=== PATIENT | male | born 1950 | race Caucasian/White ===

== ENCOUNTER 2019-12-30 10:07 | Emergency (ER) | payer OTHER ==
[2019-12-30 10:30] VITALS: TEMP 98.3; BMI 21.2
--- NOTE | 2019-12-30 10:50 | PDOC ---
History of Present Illness - General Chief Complaint: Cold Symptoms Stated Complaint: FEVER/COUGH Time Seen by Provider: 12/30/19 10:48 History Source: Patient, Old Records Exam Limitations: No Limitations - History of Present Illness Initial Comments: 12/30/19 10:49 CHIEF COMPLAINT: HISTORY OF PRESENT ILLNESS: This is a 69-year-old male with a history of hypertension, ESRD on HD /Juani/Thu, IDDM, gallstones s/p cholecystectomy feeling ill since yesterday with subj fever, vomiting x 3, and dry cough. Patient denies chest pain, shortness of breath, chills/rigors, abdominal pain, or any other symptoms. He denies recent travel or known sick contacts. Vital signs on arrival are notable for HTN 205/75. Patient did not take home meds this morning. PCP: Dr. Oj Julien REVIEW OF SYSTEMS: GENERAL/CONSTITUTIONAL:Subjective fever, no or chills. No weakness. No weight change. HEAD, EYES, EARS, NOSE AND THROAT: No change in vision. No ear pain or discharge. No sore throat. CARDIOVASCULAR: No chest pain or palpitations. RESPIRATORY: No cough, wheezing, or shortness of breath. GASTROINTESTINAL: No nausea, vomiting, diarrhea or constipation. GENITOURINARY: No dysuria, frequency, or change in urination. MUSCULOSKELETAL: No joint or muscle swelling or pain. No neck or back pain. SKIN: No rash or easy bruising. NEUROLOGIC: No headache, vertigo, loss of consciousness, or loss of sensation. PSYCHIATRIC: No depression or anxiety. ENDOCRINE: No increased thirst. No abnormal weight change. HEMATOLOGIC/LYMPHATIC: No anemia, easy bleeding, or history of blood clots. ALLERGIC/IMMUNOLOGIC: No hives or skin allergy. No latex allergy. PHYSICAL EXAM: GENERAL: The patient is awake, alert, and fully oriented, in no acute distress. HEAD: Normal with no signs of trauma. ENT: Pupils equal, round and reactive to light, extraocular movements intact, sclera anicteric, conjunctiva clear. Neck supple. LUNGS: Clear to auscultation bilaterally. Normal excursion. No respiratory distress or use of accessory muscles. CV: RRR, S1/S2, no MRG. Cap refill < 2 sec. ABDOMEN: Soft, non-distended, non-tender. EXTREMITIES: Normal range of motion, no edema. NEUROLOGICAL: Normal speech, normal gait. CN II-XII grossly intact. PSYCH: Normal mood, normal affect. SKIN: Warm, dry, normal turgor, no rashes or lesions noted. Past History - Past Medical History Allergies/Adverse Reactions: Allergies Allergy/AdvReac Type Severity Reaction Status Date / Time No Known Allergies Allergy Verified 12/30/19 10:25 Home Medications: Ambulatory Orders Atorvastatin Ca [Lipitor] 20 mg PO HS #30 tablet 02/15/16 Carvedilol [Coreg -] 25 mg PO BID tablet 02/15/16 Nifedipine ER [Procardia XL -] 60 mg PO DAILY tab.er.24 02/15/16 Sevelamer Carbonate [Renvela -] 1,600 mg PO TIDCM tab 02/15/16 Vit B Comp No.3/Folic/C/Biotin [Nephro-Hannah Rx Tablet] 1 each PO DAILY 11/09/16 Oxycodone HCl/Acetaminophen [Percocet 5-325 mg Tablet] 1 - 2 tab PO Q6H #28 tab MDD 4 11/10/16 Docusate Sodium [Colace -] 100 mg PO Q12H PRN #60 capsule 11/12/16 Insulin Sliding Scale [Novolog Vial Sliding Scale -] 1 vial SQ ACHS units 11/12 Ondansetron [Zofran *Odt*] 4 mg SL TID PRN #21 od.tablet 12/30/19 Oseltamivir Phosphate [Tamiflu] 30 mg PO ASDIR #5 capsule 12/30/19 Anemia: No CVA: Yes (in 2005) COPD: No Diabetes: Yes Dialysis: Yes (,,) GI Disorders: Yes (GALLSTONES) HTN: Yes Hypercholesterolemia: Yes - Immunization History Immunization Up to Date: Yes - Psycho Social/Smoking Cessation Hx Smoking History: Never smoked Have you smoked in the past 12 months: No Information on smoking cessation initiated: No Hx Alcohol Use: No Drug/Substance Use Hx: No Substance Use Type: None Hx Substance Use Treatment: No *Physical Exam - Vital Signs Last Vital Signs Temp Pulse Resp BP Pulse Ox 98.3 F 94 H 16 205/75 H 98 12/30/19 10:21 12/30/19 10:21 12/30/19 10:21 12/30/19 10:21 01/31/20 10:21 ED Treatment Course - LABORATORY CBC & Chemistry Diagram: 12/30/19 11:20 12/30/19 11:20 Medical Decision Making - Medical Decision Making 12/30/19 12:32 A/P: 69-year-old male with flulike symptoms, also with severe range HTN after not taking blood pressure medication today. 1. Labs including CBC, CMP, flu a swab 2. CXR rule out pneumonia 3. Reevaluate Flu a is positive. X-ray is negative for infiltrate. Patient is well- appearing. Will treat with Tamiflu according to HD dosing. Follow-up instructions and return precautions reviewed. Discharge - Discharge Information Problems reviewed: Yes Clinical Impression/Diagnosis: Influenza A Condition: Stable Disposition: HOME - Admission No - Additional Discharge Information Prescriptions: Ondansetron [Zofran *Odt*] 4 mg SL TID PRN #21 od.tablet PRN Reason: Nausea Oseltamivir Phosphate [Tamiflu] 30 mg PO ASDIR #5 capsule - Follow up/Referral Referrals: Oj Julien [Primary Care Provider] - 3 days - Patient Discharge Instructions Patient Printed Discharge Instructions: DI for Influenza -- Adult Additional Instructions: -Take Tamiflu as prescribed for influenza -Take Zofran if needed for nausea/vomiting -Stay home! Notify your dialysis center that you have flu. -Return here for difficulty breathing or any other concerning symptoms Print Language: ARMENIAN - Post Discharge Activity
[2019-12-30] MEDS ORDERED: amLODIPine BESYLATE 10 MG TABLET (FP) PO ONE (10:54)
[2019-12-30] MEDS ORDERED: amLODIPine BESYLATE 5 MG TABLET (FP) ONE (11:01)
[2019-12-30 11:40] LABS: BASO % 0.7 % (0-2.0); EOS % 0.1 % (0-4.5); HEMATOCRIT 39.5 % (35.4-49); HEMOGLOBIN 13.4 GM/dL (11.7-16.9); LYMPH % 13.4 % (8-40); MCH 34.1 pg (25.7-33.7); MEAN CELL VOLUME 100.4 fl (80-96); MEAN PLT VOLUME 7.4 fl (7.5-11.1); MONO % 12.1 % (3.8-10.2); NEUT % 73.7 % (42.8-82.8); PLATELET COUNT 252 K/MM3 (134-434); RBC 3.94 M/mm3 (4.00-5.60); RDW 14.2 % (11.9-15.9); WHITE BLOOD COUNT 4.3 K/mm3 (4.0-10.0)
[2019-12-30 12:22] LABS: ALBUMIN 3.7 g/dl (3.4-5.0); BILIRUBIN,TOTAL 0.6 mg/dL (0.2-1); BLOOD UREA NITROGEN 17.7 mg/dL (7-18); CALCIUM 9.7 mg/dL (8.5-10.1); CREATININE 5.9 mg/dL (0.55-1.3); POTASSIUM 5.5 mmol/L (3.5-5.1); TOT PROT 7.9 g/dl (6.4-8.2)
[2019-12-30 12:58] VITALS: BP 175/71; PULSE 83
== END 2019-12-30 12:59 | disposition home or self-care (01) ==
LOC: JER 10:07
DX: J09.X2 Influenza due to identified novel influenza A virus with other respiratory manifestations (principal); I10 Essential (primary) hypertension; E78.00 Pure hypercholesterolemia, unspecified; E11.9 Type 2 diabetes mellitus without complications; Z99.2 Dependence on renal dialysis
CPT/HCPCS: 36415; 71046-TC-FY; 80053; 85025; 87804; 99283-25

== ENCOUNTER 2020-12-19 13:50 | Inpatient (IN) | payer OTHER ==
[2020-12-19 14:06] VITALS: BMI 17.6
[2020-12-19] MEDS ORDERED: ACETAMINOPHEN 325 MG TABLET (FP) PO ONE (15:18)
[2020-12-19] MEDS ORDERED: ACETAMINOPHEN 325 MG TABLET (FP) ONE (15:23)
[2020-12-19 16:12] LABS: EOS % 2.7 % (0-4.5); HEMATOCRIT 35.6 % (35.4-49); LYMPH % 16.4 % (8-40); MCH 34.5 pg (25.7-33.7); MCHC 33.8 g/dl (32.0-35.9); MEAN PLT VOLUME 7.2 fl (7.5-11.1); MONO % 9.3 % (3.8-10.2); NEUT % 70.6 % (42.8-82.8); PLATELET COUNT 383 K/MM3 (134-434); RBC 3.49 M/mm3 (4.00-5.60); RDW 13.9 % (11.9-15.9); WHITE BLOOD COUNT 7.8 K/mm3 (4.0-10.0)
[2020-12-19 16:26] LABS: POTASSIUM 5.4 mmol/L (3.5-5.1)
[2020-12-19 16:30] LABS: ALBUMIN 3.1 g/dl (3.4-5.0); CALCIUM 9.7 mg/dL (8.5-10.1)
[2020-12-19 16:33] LABS: CREATININE 5.6 mg/dL (0.55-1.3)
[2020-12-19] MEDS ORDERED: morphine CARPU-JECT 2 MG/1 ML DISP.SYRIN IVPUSH ONE (16:34)
[2020-12-19 16:35] LABS: BILIRUBIN,TOTAL 0.4 mg/dL (0.2-1); TOT PROT 7.6 g/dl (6.4-8.2)
[2020-12-19] MEDS ORDERED: CALCIUM GLUCONATE 10% - 1,000 MG/10 ML VIAL IVPB ONE (17:06)
[2020-12-19] MEDS ORDERED: DEXTROSE 50%-WATER - 25 GM/50 ML VIAL IVPUSH ONE (17:08)
[2020-12-19] MEDS ORDERED: INSULIN REGULAR HUMAN 100 UNITS/ML *VIAL IVPUSH ONE (17:08)
[2020-12-19] MEDS ORDERED: SODIUM ZIRCONIUM CYCLOSILICATE (LOKELMA) 5 GM PACKET PO ONE (17:15)
[2020-12-19] MEDS ORDERED: DEXTROSE 50%-WATER 25 GM/50 ML DISP.SYRIN ONE (17:20)
[2020-12-19] MEDS ORDERED: CALCIUM GLUCONATE 10% - 1,000 MG/10 ML VIAL ONE (17:20)
[2020-12-19] MEDS ORDERED: MORPHINE SULFATE 2 MG/ML VIAL ONE (17:37)
[2020-12-19] MEDS ORDERED: SODIUM ZIRCONIUM CYCLOSILICATE (LOKELMA) 5 GM PACKET ONE (18:19)
[2020-12-19] MEDS ORDERED: BISACODYL 10 MG SUPP.RECT PR ONE (20:45)
[2020-12-19] MEDS ORDERED: POLYETHYLENE GLYCOL 3350 119 GM BTL PO ONE (20:48)
[2020-12-19] MEDS ORDERED: BISACODYL 10 MG SUPP.RECT ONE (21:48)
[2020-12-19 22:45] LABS: POTASSIUM 4.8 mmol/L (3.5-5.1)
[2020-12-19 22:47] LABS: BLOOD UREA NITROGEN 37.4 mg/dL (7-18); CALCIUM 9.7 mg/dL (8.5-10.1)
[2020-12-19 22:51] LABS: CREATININE 5.8 mg/dL (0.55-1.3)
[2020-12-19 22:58] LABS: URINE APPEARANCE TURBID; URINE BILIRUBIN NEGATIVE (NEGATIVE); URINE COLOR RED; URINE GLUCOSE (UA) NEGATIVE (NEGATIVE); URINE KETONE NEGATIVE (NEGATIVE); URINE LEUK ESTERASE 3+ (NEGATIVE); URINE NITRITE NEGATIVE (NEGATIVE); URINE PROTEIN 4+ (NEGATIVE); URINE UROBILINOGEN 0.2 mg/dL (0.2-1.0)
[2020-12-19] MEDS ORDERED: CEFTRIAXONE 1 GM in DEXTROSE 5%-WATER - 100 ML IVPB ONE (23:11)
[2020-12-19] MEDS ORDERED: CEFTRIAXONE 1 GM/50 ML BAG ONE (23:16)
[2020-12-20] MEDS ORDERED: ACETAMINOPHEN 325 MG TABLET (FP) PO ONE (06:30)
[2020-12-20] MEDS: INSULIN SLIDING SCALE (NOVOLOG) 1 VIAL SQ SCH ×4 (06:32→23:24)
[2020-12-20 07:50] LABS: BASO % 0.8 % (0-2.0); EOS % 2.1 % (0-4.5); HEMOGLOBIN 10.7 GM/dL (11.7-16.9); LYMPH % 12.7 % (8-40); MCH 34.4 pg (25.7-33.7); MCHC 34.6 g/dl (32.0-35.9); MEAN CELL VOLUME 99.4 fl (80-96); MEAN PLT VOLUME 6.8 fl (7.5-11.1); MONO % 8.6 % (3.8-10.2); NEUT % 75.8 % (42.8-82.8); PLATELET COUNT 366 K/MM3 (134-434); RBC 3.12 M/mm3 (4.00-5.60); RDW 13.5 % (11.9-15.9); WHITE BLOOD COUNT 8.1 K/mm3 (4.0-10.0)
[2020-12-20 07:54] LABS: BLOOD UREA NITROGEN 42.6 mg/dL (7-18); CALCIUM 9.2 mg/dL (8.5-10.1); MAGNESIUM 2.4 mg/dL (1.8-2.4)
[2020-12-20 07:55] LABS: ALBUMIN 2.7 g/dl (3.4-5.0)
[2020-12-20 07:58] LABS: CREATININE 6.2 mg/dL (0.55-1.3)
[2020-12-20 07:59] LABS: BILIRUBIN,TOTAL 0.5 mg/dL (0.2-1); TOT PROT 6.2 g/dl (6.4-8.2)
[2020-12-20] MEDS ORDERED: DOCUSATE SODIUM 100 MG CAPSULE (FP) PO PRN (08:51)
[2020-12-20] MEDS ORDERED: traMADol HCL 50 MG TABLET PO PRN (08:51)
[2020-12-20] MEDS ORDERED: ONDANSETRON *ODT* 4 MG TABLET SL PRN (08:51)
[2020-12-20] MEDS ORDERED: ACETAMINOPHEN 325 MG TABLET (FP) ONE (11:10)
[2020-12-20] MEDS: HEPARIN NA (PORCINE) 5,000 UNITS/ML 1ML VIAL SQ SCH ×2 (11:12→21:50)
[2020-12-20] MEDS ORDERED: ACETAMINOPHEN 325 MG TABLET (FP) PO PRN (11:34)
[2020-12-20] MEDS ORDERED: PHENAZOPYRIDINE HCL 100 MG TABLET (FP) PO PRN (11:34)
[2020-12-20] MEDS: SEVELAMER CARBONATE 800 MG TAB (FP) PO SCH ×2 (12:36→17:19)
[2020-12-20] MEDS ORDERED: EPOETIN ALFA-EPBX 3,000 UNIT/ML VIAL IVPUSH ONE (15:00)
[2020-12-20] MEDS ORDERED: DEXTROSE 5%-WATER - 50 ML IVPB ONE (16:01)
[2020-12-20] MEDS ORDERED: cefTRIAXone SODIUM 1 GM VIAL ONE (16:01)
[2020-12-20] MEDS: POLYETHYLENE GLYCOL 3350 119 GM BTL PO SCH ×2 (18:16→23:15)
[2020-12-20] MEDS: CARVEDILOL 25 MG TABLET (FP) PO SCH ×2 (18:16→21:52)
[2020-12-20] MEDS: LISINOPRIL 10 MG TABLET PO SCH (18:17)
[2020-12-20] MEDS: NIFEdipine E.R. 90 MG TABLET PO SCH (18:17)
[2020-12-20] MEDS: VITAMIN B COMP W-C 1 EA TABLET (NEPHRO-VITE) PO SCH (18:17)
[2020-12-20] MEDS: CEFTRIAXONE 1 GM in DEXTROSE 5%-WATER - 50 ML IVPB SCH (18:19)
[2020-12-20] MEDS ORDERED: MIRTAZAPINE 15 MG TABLET (FP) PO SCH (22:00)
[2020-12-20] MEDS ORDERED: ATORVASTATIN CA 20 MG TABLET (FP) PO SCH (22:00)
[2020-12-21] MEDS: INSULIN SLIDING SCALE (NOVOLOG) 1 VIAL SQ SCH (06:47)
[2020-12-21 07:23] LABS: BASO % 1.2 % (0-2.0); EOS % 2.8 % (0-4.5); HEMATOCRIT 28.9 % (35.4-49); HEMOGLOBIN 10.2 GM/dL (11.7-16.9); LYMPH % 21.8 % (8-40); MCH 35.1 pg (25.7-33.7); MCHC 35.1 g/dl (32.0-35.9); MEAN CELL VOLUME 99.9 fl (80-96); MEAN PLT VOLUME 6.7 fl (7.5-11.1); NEUT % 62.2 % (42.8-82.8); PLATELET COUNT 319 K/MM3 (134-434); RBC 2.89 M/mm3 (4.00-5.60); RDW 14.1 % (11.9-15.9); WHITE BLOOD COUNT 5.3 K/mm3 (4.0-10.0)
[2020-12-21 07:44] LABS: CALCIUM 8.9 mg/dL (8.5-10.1); POTASSIUM 4.4 mmol/L (3.5-5.1)
[2020-12-21 07:45] LABS: ALBUMIN 2.5 g/dl (3.4-5.0); BLOOD UREA NITROGEN 22.6 mg/dL (7-18)
[2020-12-21 07:48] LABS: CREATININE 4.2 mg/dL (0.55-1.3)
[2020-12-21 07:49] LABS: BILIRUBIN,TOTAL 0.4 mg/dL (0.2-1); TOT PROT 6.1 g/dl (6.4-8.2)
[2020-12-21] MEDS ORDERED: DEXTROSE 5%-WATER - 50 ML IVPB ONE (08:45)
[2020-12-21] MEDS ORDERED: cefTRIAXone SODIUM 1 GM VIAL ONE (08:45)
[2020-12-21] MEDS: NIFEdipine E.R. 90 MG TABLET PO SCH (09:02)
[2020-12-21] MEDS: SEVELAMER CARBONATE 800 MG TAB (FP) PO SCH ×2 (09:02→11:26)
[2020-12-21] MEDS: HEPARIN NA (PORCINE) 5,000 UNITS/ML 1ML VIAL SQ SCH (09:02)
[2020-12-21] MEDS: CEFTRIAXONE 1 GM in DEXTROSE 5%-WATER - 50 ML IVPB SCH (09:02)
[2020-12-21] MEDS: POLYETHYLENE GLYCOL 3350 119 GM BTL PO SCH (09:03)
[2020-12-21] MEDS: CARVEDILOL 25 MG TABLET (FP) PO SCH (09:03)
[2020-12-21] MEDS: LISINOPRIL 10 MG TABLET PO SCH (09:03)
[2020-12-21] MEDS: VITAMIN B COMP W-C 1 EA TABLET (NEPHRO-VITE) PO SCH (09:03)
[2020-12-21 10:40] VITALS: BP 128/52; PULSE 66; TEMP 99.4
== END 2020-12-21 14:12 | disposition home or self-care (01) | DRG 391 ==
LOC: JER 13:50 → JERBED 20:54 → J4W 12-20 05:14
PROVIDERS: ADMIT Family Medicine; ATTEND Family Medicine
PROC: 5A1D70Z Performance of Urinary Filtration, Intermittent, Less than 6 Hours Per Day (ICD-10-PCS; principal; 2020-12-20)
DX: K59.00 Constipation, unspecified (principal); N18.6 End stage renal disease; R64 Cachexia; N39.0 Urinary tract infection, site not specified; Z68.1 Body mass index [BMI] 19.9 or less, adult; I12.0 Hypertensive chronic kidney disease with stage 5 chronic kidney disease or end stage renal disease; E10.9 Type 1 diabetes mellitus without complications; E87.5 Hyperkalemia; N40.0 Benign prostatic hyperplasia without lower urinary tract symptoms; Z99.2 Dependence on renal dialysis
CPT/HCPCS: 36415; 74176-TC; 80048; 80053; 81003; 82962; 83735; 85025; 86704; 86706; 86707; 86708; 86709; 86803; 87086; 87340; 93005; 93010; 99285-25; C9803; J1644; Q5106; U0003

== ENCOUNTER 2021-04-30 07:00 | Inpatient (IN) | payer OTHER ==
[2021-04-30] MEDS ORDERED: CALCIUM GLUCONATE 10% - 1,000 MG/10 ML VIAL IVPUSH ONE (07:16)
[2021-04-30] MEDS ORDERED: ONDANSETRON 4 MG/2 ML VIAL IVPUSH ONE (07:45)
[2021-04-30 08:04] LABS: INR 0.91 (0.83-1.09); PROTHROMBIN TIME (PATIENT) 11.1 SEC (9.7-13.0)
[2021-04-30 08:06] LABS: ACTIVATED PTT 29.5 SECONDS (25.2-36.5)
[2021-04-30 08:11] LABS: CHLORIDE 91 mmol/L (98-107); SODIUM 129 mmol/L (136-145)
[2021-04-30 08:13] LABS: CALCIUM 10.1 mg/dL (8.5-10.1)
[2021-04-30 08:14] LABS: BLOOD UREA NITROGEN 53.9 mg/dL (7-18); CO2 23 mmol/L (21-32); GLUCOSE,RANDOM 110 mg/dL (74-106)
[2021-04-30 08:16] LABS: CHOLESTEROL 187 mg/dL (50-200)
[2021-04-30 08:17] LABS: SGOT/AST 47 U/L (15-37); SGPT/ALT 7 U/L (13-61); TRIGLYCERIDES 138 mg/dL (0-150)
[2021-04-30 08:18] LABS: BILIRUBIN,TOTAL 0.6 mg/dL (0.2-1); LDL CHOLESTEROL (ONLY SJRH) 100 mg/dL (5-100)
[2021-04-30 08:19] LABS: HDL CHOLESTEROL 60 mg/dL (40-60); TOT PROT 9.3 g/dl (6.4-8.2)
[2021-04-30 08:20] LABS: ALK PHOS 94 U/L (45-117)
[2021-04-30] MEDS ORDERED: ONDANSETRON 4 MG/2 ML VIAL ONE (08:35)
[2021-04-30 08:36] LABS: BASO % 0.6 % (0-2.0); EOS % 1.4 % (0-4.5); HEMATOCRIT 41.5 % (35.4-49); HEMOGLOBIN 14.1 GM/dL (11.7-16.9); LYMPH % 20.1 % (8-40); MCH 32.7 pg (25.7-33.7); MCHC 33.9 g/dl (32.0-35.9); MEAN CELL VOLUME 96.5 fl (80-96); MEAN PLT VOLUME 7.9 fl (7.5-11.1); MONO % 5.7 % (3.8-10.2); NEUT % 72.2 % (42.8-82.8); PLATELET COUNT 495 K/MM3 (134-434); RDW 16.2 % (11.9-15.9); WHITE BLOOD COUNT 6.7 K/mm3 (4.0-10.0)
[2021-04-30] MEDS ORDERED: CALCIUM GLUCONATE 10% - 1,000 MG/10 ML VIAL ONE ×2 (08:36→09:31)
[2021-04-30 08:41] LABS: ANION GAP 15 MMOL/L (8-16); CREATININE 8.7 mg/dL (0.55-1.3)
[2021-04-30] MEDS ORDERED: LABETALOL HCL 5 MG/1 ML (100MG/20 ML VIAL) IVPUSH ONE (09:50)
[2021-04-30] MEDS ORDERED: LABETALOL HCL 5 MG/1 ML (100MG/20 ML VIAL) ONE (09:55)
[2021-04-30] MEDS ORDERED: HEPARIN NA (PORCINE) 5,000 UNITS/ML 1ML VIAL ONE (09:57)
[2021-04-30] MEDS ORDERED: LIDOCAINE HCL 1%, 10 MG/ML (20ML VIAL) ONE (09:57)
[2021-04-30 10:11] LABS: ANISOCYTOSIS 0; MACROCYTOSIS 0; PLATELET ESTIMATE INCREASED
[2021-04-30] MEDS ORDERED: MIDAZOLAM HCL 2 MG/2 ML SINGLE DOSE VIAL ONE (10:14)
[2021-04-30] MEDS ORDERED: ROCURONIUM BROMIDE 50 MG/5 ML SYRINGE ONE (10:19)
[2021-04-30] MEDS ORDERED: ceFAZolin SODIUM 1 GM VIAL ONE (10:37)
[2021-04-30] MEDS ORDERED: SODIUM CHLORIDE 0.9% P/F 10 ML VIAL IJ ONE (10:37)
[2021-04-30] MEDS ORDERED: ceFAZolin SODIUM 1 GM VIAL IVPB ONE (10:41)
[2021-04-30] MEDS ORDERED: METOPROLOL TARTRATE 5 MG/5 ML VIAL ONE ×2 (10:47→11:50)
[2021-04-30] MEDS ORDERED: LIDOCAINE HCL 1%, 10 MG/ML (20ML VIAL) NR ONE (10:58)
[2021-04-30] MEDS ORDERED: hydrALAZINE HCL 20 MG/ML VIAL ONE ×2 (11:03→11:37)
[2021-04-30] MEDS ORDERED: NEOSTIGMINE METHYLSULFATE 0.5 MG/ML - 10 ML MDV ONE (11:27)
[2021-04-30] MEDS ORDERED: GLYCOPYRROLATE 0.2 MG/1 ML VIAL ONE (11:27)
[2021-04-30] MEDS ORDERED: POVIDONE-IODINE OINTMENT 10% - 28.4 GM TUBE ONE (11:27)
[2021-04-30] MEDS ORDERED: ONDANSETRON 4 MG/2 ML VIAL IVPUSH PRN (12:08)
[2021-04-30] MEDS ORDERED: PROMETHAZINE HCL 25 MG/1 ML VIAL IVPUSH PRN (12:08)
[2021-04-30] MEDS ORDERED: SODIUM CHLORIDE 250 ML IV PRN (13:40)
[2021-04-30] MEDS: SODIUM CHLORIDE 1,000 ML IV SCH (16:05)
[2021-04-30] MEDS ORDERED: ACETAMINOPHEN 1000 MG/100 ML VIAL (NON FORMULARY) IVPB ONE (18:27)
[2021-04-30] MEDS: LACTATED RINGERS SOLUTION 1,000 ML/1,000 ML INFUS.BAG IV SCH (19:25)
[2021-04-30] MEDS ORDERED: PT OWN MED DRAWER 7, Y5N ONE ×2 (19:38→22:28)
[2021-04-30] MEDS ORDERED: PNEUMOC 13-VAL CONJ-DIP CRM/PF 0.5 ML DISP.SYRIN IM ONE (20:00)
[2021-04-30 22:02] LABS: CHLORIDE 102 mmol/L (98-107); SODIUM 140 mmol/L (136-145)
[2021-04-30 22:03] LABS: CALCIUM 8.9 mg/dL (8.5-10.1)
[2021-04-30 22:04] LABS: ANION GAP 14 MMOL/L (8-16); CO2 24 mmol/L (21-32); GLUCOSE,RANDOM 144 mg/dL (74-106)
[2021-04-30] MEDS: ACETAMINOPHEN 1000 MG/100 ML VIAL (NON FORMULARY) IVPB PRN (22:05)
[2021-04-30 22:07] LABS: CREATININE 4.5 mg/dL (0.55-1.3); SGOT/AST 22 U/L (15-37)
[2021-04-30 22:09] LABS: BILIRUBIN,TOTAL 0.6 mg/dL (0.2-1)
[2021-04-30 22:10] LABS: ALK PHOS 67 U/L (45-117)
[2021-04-30 22:13] LABS: ALBUMIN 2.9 g/dl (3.4-5.0); BLOOD UREA NITROGEN 24.3 mg/dL (7-18); SGPT/ALT < 6 U/L (13-61); TOT PROT 6.4 g/dl (6.4-8.2)
[2021-04-30] MEDS: MUPIROCIN 2% TOPICAL OINTMENT FOR DECOLONIZATION NS SCH (22:35)
[2021-04-30] MEDS: CHLORHEXIDINE GLUCONATE 4% CLEANSER FOR DECOLONIZATION TP SCH (22:36)
[2021-05-01] MEDS ORDERED: NICARDIPINE 25 MG in DEXTROSE 5%-WATER - 240 ML IVPB SCH (02:15)
[2021-05-01] MEDS: INSULIN SLIDING SCALE (NOVOLOG) 1 VIAL SQ SCH ×4 (06:03→22:15)
[2021-05-01] MEDS: SODIUM CHLORIDE 1,000 ML IV SCH ×2 (07:00→14:12)
[2021-05-01 07:14] LABS: BASO % 0.5 % (0-2.0); CHLORIDE 101 mmol/L (98-107); EOS % 0.1 % (0-4.5); HEMATOCRIT 28.8 % (35.4-49); HEMOGLOBIN 9.6 GM/dL (11.7-16.9); LYMPH % 9.7 % (8-40); MCH 32.2 pg (25.7-33.7); MCHC 33.4 g/dl (32.0-35.9); MEAN CELL VOLUME 96.4 fl (80-96); NEUT % 75.7 % (42.8-82.8); PLATELET COUNT 361 K/MM3 (134-434); RBC 2.99 M/mm3 (4.00-5.60); RDW 16.9 % (11.9-15.9); SODIUM 139 mmol/L (136-145); WHITE BLOOD COUNT 8.4 K/mm3 (4.0-10.0)
[2021-05-01 07:19] LABS: ALBUMIN 2.8 g/dl (3.4-5.0); ANION GAP 10 MMOL/L (8-16); BLOOD UREA NITROGEN 26.5 mg/dL (7-18); CALCIUM 8.7 mg/dL (8.5-10.1); CO2 28 mmol/L (21-32); GLUCOSE,RANDOM 141 mg/dL (74-106); MAGNESIUM 2.4 mg/dL (1.8-2.4)
[2021-05-01 07:22] LABS: SGOT/AST 21 U/L (15-37); SGPT/ALT < 6 U/L (13-61)
[2021-05-01 07:23] LABS: PHOSPHOROUS 6.4 mg/dL (2.5-4.9)
[2021-05-01 07:24] LABS: BILIRUBIN,TOTAL 0.5 mg/dL (0.2-1); TOT PROT 6.4 g/dl (6.4-8.2)
[2021-05-01 07:25] LABS: ALK PHOS 63 U/L (45-117)
[2021-05-01 07:33] LABS: CREATININE 5.5 mg/dL (0.55-1.3)
[2021-05-01] MEDS: MUPIROCIN 2% TOPICAL OINTMENT FOR DECOLONIZATION NS SCH ×2 (11:00→22:15)
[2021-05-01] MEDS: ACETAMINOPHEN 1000 MG/100 ML VIAL (NON FORMULARY) IVPB PRN (14:07)
[2021-05-01 15:49] LABS: BASO % 0.5 % (0-2.0); HEMATOCRIT 28.9 % (35.4-49); HEMOGLOBIN 9.6 GM/dL (11.7-16.9); LYMPH % 8.9 % (8-40); MCH 32.2 pg (25.7-33.7); MCHC 33.2 g/dl (32.0-35.9); MEAN CELL VOLUME 96.9 fl (80-96); MEAN PLT VOLUME 6.7 fl (7.5-11.1); MONO % 11.2 % (3.8-10.2); NEUT % 79.4 % (42.8-82.8); PLATELET COUNT 327 K/MM3 (134-434); RBC 2.98 M/mm3 (4.00-5.60); RDW 17.1 % (11.9-15.9); WHITE BLOOD COUNT 9.9 K/mm3 (4.0-10.0)
[2021-05-01] MEDS: NICARDIPINE IVPB SCH (16:00)
[2021-05-01] MEDS: SODIUM CHLORIDE IVPB SCH (16:00)
[2021-05-01] MEDS: LACTATED RINGERS SOLUTION 1,000 ML/1,000 ML INFUS.BAG IV SCH (18:36)
[2021-05-01] MEDS: CHLORHEXIDINE GLUCONATE 4% CLEANSER FOR DECOLONIZATION TP SCH (22:15)
[2021-05-02] MEDS: INSULIN SLIDING SCALE (NOVOLOG) 1 VIAL SQ SCH ×4 (05:59→22:30)
[2021-05-02 06:33] LABS: BASO % 0.5 % (0-2.0); EOS % 0.7 % (0-4.5); HEMATOCRIT 27.2 % (35.4-49); HEMOGLOBIN 8.8 GM/dL (11.7-16.9); LYMPH % 9.7 % (8-40); MCH 31.6 pg (25.7-33.7); MCHC 32.3 g/dl (32.0-35.9); MEAN CELL VOLUME 97.6 fl (80-96); MEAN PLT VOLUME 6.8 fl (7.5-11.1); MONO % 9.2 % (3.8-10.2); NEUT % 79.9 % (42.8-82.8); PLATELET COUNT 333 K/MM3 (134-434); RBC 2.79 M/mm3 (4.00-5.60); RDW 17.4 % (11.9-15.9); WHITE BLOOD COUNT 9.6 K/mm3 (4.0-10.0)
[2021-05-02 06:42] LABS: CHLORIDE 103 mmol/L (98-107); SODIUM 139 mmol/L (136-145)
[2021-05-02 06:44] LABS: CALCIUM 8.7 mg/dL (8.5-10.1)
[2021-05-02 06:45] LABS: ALBUMIN 2.8 g/dl (3.4-5.0); ANION GAP 11 MMOL/L (8-16); CO2 26 mmol/L (21-32); GLUCOSE,RANDOM 101 mg/dL (74-106); MAGNESIUM 2.5 mg/dL (1.8-2.4)
[2021-05-02 06:48] LABS: CREATININE 7.2 mg/dL (0.55-1.3); PHOSPHOROUS 7.6 mg/dL (2.5-4.9); SGOT/AST 25 U/L (15-37); SGPT/ALT < 6 U/L (13-61)
[2021-05-02 06:49] LABS: BILIRUBIN,TOTAL 0.5 mg/dL (0.2-1)
[2021-05-02 06:51] LABS: ALK PHOS 60 U/L (45-117)
[2021-05-02] MEDS ORDERED: SODIUM CHLORIDE 250 ML IV PRN (07:38)
[2021-05-02] MEDS ORDERED: EPOETIN ALFA-EPBX 4,000 UNIT/ML VIAL IVPUSH ONE (08:00)
[2021-05-02] MEDS: MUPIROCIN 2% TOPICAL OINTMENT FOR DECOLONIZATION NS SCH ×2 (10:02→21:38)
[2021-05-02 10:19] LABS: ANISOCYTOSIS 1+; MACROCYTOSIS 0; OVALOCYTE 1+; PLATELET ESTIMATE NORMAL; TEAR DROP CELLS 1+
[2021-05-02] MEDS ORDERED: POLYETHYLENE GLYCOL 3350 119 GM BTL PO PRN (11:48)
[2021-05-02] MEDS ORDERED: NIFEdipine E.R. 90 MG TABLET PO SCH ×2 (12:00→12:15)
[2021-05-02] MEDS: SEVELAMER CARBONATE 800 MG TAB (FP) PO SCH ×2 (12:43→18:01)
[2021-05-02] MEDS: CARVEDILOL 25 MG TABLET (FP) PO SCH ×2 (12:43→21:38)
[2021-05-02] MEDS: NICARDIPINE IVPB SCH ×2 (12:44→15:31)
[2021-05-02] MEDS: SODIUM CHLORIDE IVPB SCH ×2 (12:44→15:31)
[2021-05-02] MEDS: VITAMIN B COMP W-C 1 EA TABLET (NEPHRO-VITE) PO SCH (12:44)
[2021-05-02] MEDS: LACTATED RINGERS SOLUTION 1,000 ML/1,000 ML INFUS.BAG IV SCH ×2 (13:35→18:01)
[2021-05-02 13:37] VITALS: BMI 25.3
[2021-05-02] MEDS: ACETAMINOPHEN 1000 MG/100 ML VIAL (NON FORMULARY) IVPB PRN (15:37)
[2021-05-02 16:08] LABS: HEP B CORE AB, TOT Positive (Negative)
[2021-05-02] MEDS: CHLORHEXIDINE GLUCONATE 4% CLEANSER FOR DECOLONIZATION TP SCH (21:38)
[2021-05-02] MEDS ORDERED: ATORVASTATIN CA 40 MG TABLET (FP) PO SCH (22:00)
[2021-05-02] MEDS ORDERED: MIRTAZAPINE 15 MG TABLET (FP) PO SCH (22:00)
[2021-05-02] MEDS ORDERED: MANNITOL 25% 12.5 GM/50 ML VIAL IVPB ONE (22:51)
[2021-05-03] MEDS: INSULIN SLIDING SCALE (NOVOLOG) 1 VIAL SQ SCH ×4 (06:26→22:00)
[2021-05-03 07:07] LABS: BASO % 0.5 % (0-2.0); EOS % 0.8 % (0-4.5); HEMATOCRIT 24.4 % (35.4-49); HEMOGLOBIN 7.9 GM/dL (11.7-16.9); LYMPH % 10.3 % (8-40); MCH 31.6 pg (25.7-33.7); MCHC 32.2 g/dl (32.0-35.9); MONO % 9.9 % (3.8-10.2); NEUT % 78.5 % (42.8-82.8); PLATELET COUNT 258 K/MM3 (134-434); RBC 2.49 M/mm3 (4.00-5.60); RDW 16.7 % (11.9-15.9); WHITE BLOOD COUNT 6.7 K/mm3 (4.0-10.0)
[2021-05-03 07:12] LABS: CHLORIDE 102 mmol/L (98-107); SODIUM 139 mmol/L (136-145)
[2021-05-03 07:16] LABS: CALCIUM 8.6 mg/dL (8.5-10.1)
[2021-05-03 07:17] LABS: ALBUMIN 2.5 g/dl (3.4-5.0); ANION GAP 7 MMOL/L (8-16); BLOOD UREA NITROGEN 27.8 mg/dL (7-18); CO2 29 mmol/L (21-32); GLUCOSE,RANDOM 88 mg/dL (74-106); MAGNESIUM 2.1 mg/dL (1.8-2.4)
[2021-05-03 07:20] LABS: CREATININE 5.3 mg/dL (0.55-1.3); PHOSPHOROUS 5.1 mg/dL (2.5-4.9); SGOT/AST 24 U/L (15-37)
[2021-05-03 07:22] LABS: BILIRUBIN,TOTAL 0.5 mg/dL (0.2-1); TOT PROT 5.7 g/dl (6.4-8.2)
[2021-05-03 07:23] LABS: ALK PHOS 59 U/L (45-117)
[2021-05-03 07:37] LABS: SGPT/ALT < 6 U/L (13-61)
[2021-05-03] MEDS: SEVELAMER CARBONATE 800 MG TAB (FP) PO SCH (08:55)
[2021-05-03] MEDS ORDERED: PT OWN MED DRAWER 7, Y5N ONE (09:48)
[2021-05-03] MEDS ORDERED: VITAMIN B COMP W-C 1 EA TABLET (NEPHRO-VITE) PO SCH (10:00)
[2021-05-03] MEDS ORDERED: SODIUM ZIRCONIUM CYCLOSILICATE (LOKELMA) 10 GM PACKET PO SCH (10:00)
[2021-05-03] MEDS: CARVEDILOL 25 MG TABLET (FP) PO SCH (10:04)
[2021-05-03] MEDS: MUPIROCIN 2% TOPICAL OINTMENT FOR DECOLONIZATION NS SCH ×2 (10:05→21:51)
[2021-05-03] MEDS: SODIUM CHLORIDE IVPB SCH ×3 (10:05→17:52)
[2021-05-03] MEDS: NICARDIPINE IVPB SCH ×3 (10:05→17:52)
[2021-05-03] MEDS: VITAMIN B COMP W-C 1 EA TABLET (NEPHRO-VITE) PO SCH (10:07)
[2021-05-03] MEDS ORDERED: MANNITOL 25% 12.5 GM/50 ML VIAL IVPB ONE ×2 (15:16→17:00)
[2021-05-03] MEDS ORDERED: ACETAMINOPHEN 1000 MG/100 ML VIAL (NON FORMULARY) IVPB PRN (16:44)
[2021-05-03] MEDS: ACETAMINOPHEN 1000 MG/100 ML VIAL (NON FORMULARY) IVPB PRN (16:45)
[2021-05-03] MEDS ORDERED: SODIUM CHLORIDE 250 ML IV PRN (20:55)
[2021-05-03] MEDS: CHLORHEXIDINE GLUCONATE 4% CLEANSER FOR DECOLONIZATION TP SCH (21:51)
[2021-05-03] MEDS ORDERED: DEXTROSE 50%-WATER - 25 GM/50 ML VIAL IVPUSH ONE (22:21)
[2021-05-03] MEDS ORDERED: DEXTROSE 50%-WATER 25 GM/50 ML DISP.SYRIN ONE (23:15)
[2021-05-03] MEDS ORDERED: DEXTROSE 50%-WATER 25 GM/50 ML DISP.SYRIN IVPUSH ONE (23:15)
[2021-05-04] MEDS: LACTATED RINGERS SOLUTION 1,000 ML/1,000 ML INFUS.BAG IV SCH (06:14)
[2021-05-04] MEDS: INSULIN SLIDING SCALE (NOVOLOG) 1 VIAL SQ SCH ×4 (06:32→21:05)
[2021-05-04 06:48] LABS: BASO % 0.2 % (0-2.0); EOS % 0.3 % (0-4.5); HEMATOCRIT 26.5 % (35.4-49); HEMOGLOBIN 8.5 GM/dL (11.7-16.9); LYMPH % 5.1 % (8-40); MCH 31.7 pg (25.7-33.7); MCHC 32.2 g/dl (32.0-35.9); MEAN CELL VOLUME 98.5 fl (80-96); MEAN PLT VOLUME 7.2 fl (7.5-11.1); MONO % 5.3 % (3.8-10.2); NEUT % 89.1 % (42.8-82.8); PLATELET COUNT 273 K/MM3 (134-434); RBC 2.69 M/mm3 (4.00-5.60); RDW 16.5 % (11.9-15.9); WHITE BLOOD COUNT 11.3 K/mm3 (4.0-10.0)
[2021-05-04] MEDS ORDERED: EPOETIN ALFA-EPBX 10,000 UNIT/ML VIAL IVPUSH ONE (07:00)
[2021-05-04 07:18] LABS: CHLORIDE 102 mmol/L (98-107); SODIUM 138 mmol/L (136-145)
[2021-05-04 07:21] LABS: ALBUMIN 2.4 g/dl (3.4-5.0); ANION GAP 8 MMOL/L (8-16); BLOOD UREA NITROGEN 21.8 mg/dL (7-18); CALCIUM 8.3 mg/dL (8.5-10.1); CO2 29 mmol/L (21-32); GLUCOSE,RANDOM 78 mg/dL (74-106); MAGNESIUM 2.1 mg/dL (1.8-2.4)
[2021-05-04 07:25] LABS: CREATININE 4.2 mg/dL (0.55-1.3); PHOSPHOROUS 5.1 mg/dL (2.5-4.9); SGOT/AST 24 U/L (15-37); SGPT/ALT < 6 U/L (13-61)
[2021-05-04 07:26] LABS: BILIRUBIN,TOTAL 0.7 mg/dL (0.2-1)
[2021-05-04 07:28] LABS: ALK PHOS 62 U/L (45-117)
[2021-05-04] MEDS ORDERED: ALTEPLASE 2 MG VIAL CVP ONE (07:45)
[2021-05-04] MEDS ORDERED: SODIUM CHLORIDE 250 ML IV PRN (10:00)
[2021-05-04] MEDS: MUPIROCIN 2% TOPICAL OINTMENT FOR DECOLONIZATION NS SCH ×2 (10:27→21:05)
[2021-05-04] MEDS: NIFEdipine E.R. 90 MG TABLET PO SCH (10:34)
[2021-05-04] MEDS ORDERED: NIFEdipine 10 MG CAPSULE (FP) PO SCH (14:00)
[2021-05-04] MEDS ORDERED: LACTATED RINGERS SOLUTION 1,000 ML/1,000 ML INFUS.BAG IV SCH (16:29)
[2021-05-04] MEDS: NICARDIPINE IVPB SCH (18:06)
[2021-05-04] MEDS: SODIUM CHLORIDE IVPB SCH (18:06)
[2021-05-04] MEDS: CHLORHEXIDINE GLUCONATE 4% CLEANSER FOR DECOLONIZATION TP SCH (21:05)
[2021-05-05] MEDS: INSULIN SLIDING SCALE (NOVOLOG) 1 VIAL SQ SCH ×4 (06:04→21:11)
[2021-05-05 07:15] LABS: BASO % 0.1 % (0-2.0); EOS % 0.2 % (0-4.5); HEMATOCRIT 27.1 % (35.4-49); HEMOGLOBIN 8.7 GM/dL (11.7-16.9); MCH 31.5 pg (25.7-33.7); MCHC 32.2 g/dl (32.0-35.9); MEAN CELL VOLUME 97.7 fl (80-96); MEAN PLT VOLUME 7.7 fl (7.5-11.1); MONO % 4.2 % (3.8-10.2); NEUT % 91.5 % (42.8-82.8); PLATELET COUNT 300 K/MM3 (134-434); RBC 2.78 M/mm3 (4.00-5.60); RDW 16.6 % (11.9-15.9); WHITE BLOOD COUNT 14.9 K/mm3 (4.0-10.0)
[2021-05-05 07:33] LABS: CHLORIDE 104 mmol/L (98-107); SODIUM 142 mmol/L (136-145)
[2021-05-05 07:36] LABS: CALCIUM 9.1 mg/dL (8.5-10.1); MAGNESIUM 2.1 mg/dL (1.8-2.4)
[2021-05-05 07:38] LABS: ALBUMIN 2.3 g/dl (3.4-5.0); ANION GAP 8 MMOL/L (8-16); BLOOD UREA NITROGEN 21.5 mg/dL (7-18); CO2 30 mmol/L (21-32)
[2021-05-05 07:39] LABS: GLUCOSE,RANDOM 122 mg/dL (74-106)
[2021-05-05 07:41] LABS: PHOSPHOROUS 4.6 mg/dL (2.5-4.9); SGOT/AST 16 U/L (15-37); SGPT/ALT < 6 U/L (13-61)
[2021-05-05 07:42] LABS: ALK PHOS 67 U/L (45-117); BILIRUBIN,TOTAL 0.6 mg/dL (0.2-1); CREATININE 3.6 mg/dL (0.55-1.3)
[2021-05-05] MEDS: NIFEdipine E.R. 90 MG TABLET PO SCH (09:26)
[2021-05-05] MEDS: MUPIROCIN 2% TOPICAL OINTMENT FOR DECOLONIZATION NS SCH (09:27)
[2021-05-05 09:44] LABS: ANISOCYTOSIS 1+; MACROCYTOSIS 1+; PLATELET ESTIMATE NORMAL
[2021-05-05] MEDS ORDERED: CARVEDILOL PHOSPHATE CR 10 MG CAPSULE PO SCH (10:00)
[2021-05-05] MEDS ORDERED: ONDANSETRON 4 MG/2 ML VIAL IVPUSH PRN (16:18)
[2021-05-05] MEDS: LACTATED RINGERS SOLUTION 1,000 ML/1,000 ML INFUS.BAG IV SCH (17:35)
[2021-05-05] MEDS ORDERED: MUPIROCIN 2% TOPICAL OINTMENT FOR DECOLONIZATION NS SCH (22:00)
[2021-05-05] MEDS ORDERED: CHLORHEXIDINE GLUCONATE 4% CLEANSER FOR DECOLONIZATION TP SCH (22:00)
[2021-05-06] MEDS: INSULIN SLIDING SCALE (NOVOLOG) 1 VIAL SQ SCH ×4 (06:01→21:19)
[2021-05-06 07:48] LABS: BASO % 0.1 % (0-2.0); EOS % 0.4 % (0-4.5); HEMATOCRIT 25.8 % (35.4-49); HEMOGLOBIN 8.2 GM/dL (11.7-16.9); LYMPH % 5.5 % (8-40); MCH 31.3 pg (25.7-33.7); MCHC 31.9 g/dl (32.0-35.9); MEAN CELL VOLUME 98.1 fl (80-96); MEAN PLT VOLUME 7.4 fl (7.5-11.1); PLATELET COUNT 312 K/MM3 (134-434); RBC 2.63 M/mm3 (4.00-5.60); RDW 16.6 % (11.9-15.9); WHITE BLOOD COUNT 15.3 K/mm3 (4.0-10.0)
[2021-05-06 07:55] LABS: CHLORIDE 104 mmol/L (98-107); SODIUM 142 mmol/L (136-145)
[2021-05-06 08:01] LABS: ALBUMIN 2.1 g/dl (3.4-5.0); ANION GAP 10 MMOL/L (8-16); BLOOD UREA NITROGEN 37.6 mg/dL (7-18); CALCIUM 8.8 mg/dL (8.5-10.1); CO2 28 mmol/L (21-32); GLUCOSE,RANDOM 130 mg/dL (74-106); MAGNESIUM 2.3 mg/dL (1.8-2.4)
[2021-05-06 08:04] LABS: CREATININE 5.7 mg/dL (0.55-1.3); PHOSPHOROUS 4.5 mg/dL (2.5-4.9); SGOT/AST 14 U/L (15-37); SGPT/ALT < 6 U/L (13-61)
[2021-05-06 08:05] LABS: ALK PHOS 73 U/L (45-117); BILIRUBIN,TOTAL 0.5 mg/dL (0.2-1); TOT PROT 5.8 g/dl (6.4-8.2)
[2021-05-06] MEDS: CARVEDILOL PHOSPHATE CR 10 MG CAPSULE PO SCH (09:44)
[2021-05-06] MEDS: NIFEdipine E.R. 90 MG TABLET PO SCH (09:44)
[2021-05-06] MEDS: ACETAMINOPHEN 1000 MG/100 ML VIAL (NON FORMULARY) IVPB PRN (13:03)
[2021-05-06] MEDS ORDERED: VANCOMYCIN 1 GRAM (PRE-DOCKED) 1,000 MG/250 ML BAG IVPB ONE ×2 (14:53→15:45)
[2021-05-06] MEDS ORDERED: DEXTROSE 5%-WATER - 50 ML IVPB ONE (14:57)
[2021-05-06] MEDS ORDERED: PIPERACILLIN/TAZOBACTAM 2.25 GM VIAL IVPB ONE (14:57)
[2021-05-06] MEDS: PIPERACILLIN/TAZOB 2.25 GM 2.25 GM in DEXTROSE 5%-WATER - 50 ML IVPB SCH ×2 (15:25→18:38)
[2021-05-06] MEDS: LACTATED RINGERS SOLUTION 1,000 ML/1,000 ML INFUS.BAG IV SCH (16:33)
[2021-05-06] MEDS ORDERED: SODIUM CHLORIDE 250 ML IV PRN (18:33)
[2021-05-07] MEDS ORDERED: PIPERACILLIN/TAZOBACTAM 2.25 GM VIAL IVPB ONE ×3 (01:59→17:07)
[2021-05-07] MEDS ORDERED: DEXTROSE 5%-WATER - 50 ML IVPB ONE ×3 (01:59→17:08)
[2021-05-07] MEDS: PIPERACILLIN/TAZOB 2.25 GM 2.25 GM in DEXTROSE 5%-WATER - 50 ML IVPB SCH ×3 (02:18→17:10)
[2021-05-07] MEDS: INSULIN SLIDING SCALE (NOVOLOG) 1 VIAL SQ SCH ×4 (06:18→22:26)
[2021-05-07] MEDS: LACTATED RINGERS SOLUTION 1,000 ML/1,000 ML INFUS.BAG IV SCH ×2 (06:45→17:06)
[2021-05-07 07:34] LABS: BASO % 0.2 % (0-2.0); HEMATOCRIT 25.5 % (35.4-49); HEMOGLOBIN 8.3 GM/dL (11.7-16.9); LYMPH % 6.3 % (8-40); MCH 31.6 pg (25.7-33.7); MCHC 32.5 g/dl (32.0-35.9); MEAN CELL VOLUME 97.5 fl (80-96); MEAN PLT VOLUME 7.5 fl (7.5-11.1); MONO % 4.8 % (3.8-10.2); NEUT % 87.7 % (42.8-82.8); PLATELET COUNT 319 K/MM3 (134-434); RBC 2.62 M/mm3 (4.00-5.60); RDW 17.3 % (11.9-15.9); WHITE BLOOD COUNT 12.6 K/mm3 (4.0-10.0)
[2021-05-07 08:00] LABS: CALCIUM 8.6 mg/dL (8.5-10.1)
[2021-05-07] MEDS ORDERED: EPOETIN ALFA-EPBX 10,000 UNIT/ML VIAL IVPUSH ONE (08:00)
[2021-05-07 08:01] LABS: ALBUMIN 2.1 g/dl (3.4-5.0); BLOOD UREA NITROGEN 54.1 mg/dL (7-18); MAGNESIUM 2.4 mg/dL (1.8-2.4)
[2021-05-07 08:04] LABS: PHOSPHOROUS 4.9 mg/dL (2.5-4.9)
[2021-05-07 08:06] LABS: BILIRUBIN,TOTAL 0.6 mg/dL (0.2-1); TOT PROT 5.9 g/dl (6.4-8.2)
[2021-05-07] MEDS: NIFEdipine E.R. 90 MG TABLET PO SCH (09:26)
[2021-05-07] MEDS: CARVEDILOL PHOSPHATE CR 10 MG CAPSULE PO SCH (09:27)
[2021-05-07] MEDS: ACETAMINOPHEN 1000 MG/100 ML VIAL (NON FORMULARY) IVPB PRN (11:45)
[2021-05-08] MEDS ORDERED: DEXTROSE 5%-WATER - 50 ML IVPB ONE ×3 (02:03→17:21)
[2021-05-08] MEDS ORDERED: PIPERACILLIN/TAZOBACTAM 2.25 GM VIAL IVPB ONE ×3 (02:03→17:21)
[2021-05-08] MEDS: PIPERACILLIN/TAZOB 2.25 GM 2.25 GM in DEXTROSE 5%-WATER - 50 ML IVPB SCH ×3 (02:15→17:31)
[2021-05-08] MEDS: INSULIN SLIDING SCALE (NOVOLOG) 1 VIAL SQ SCH ×4 (07:19→23:01)
[2021-05-08 07:33] LABS: BASO % 0.3 % (0-2.0); HEMATOCRIT 25.6 % (35.4-49); HEMOGLOBIN 8.5 GM/dL (11.7-16.9); LYMPH % 6.6 % (8-40); MCH 32.1 pg (25.7-33.7); MCHC 33.1 g/dl (32.0-35.9); MEAN PLT VOLUME 7.2 fl (7.5-11.1); MONO % 7.4 % (3.8-10.2); NEUT % 84.7 % (42.8-82.8); PLATELET COUNT 363 K/MM3 (134-434); RBC 2.64 M/mm3 (4.00-5.60); WHITE BLOOD COUNT 11.9 K/mm3 (4.0-10.0)
[2021-05-08 07:49] LABS: CHLORIDE 102 mmol/L (98-107); SODIUM 140 mmol/L (136-145)
[2021-05-08] MEDS ORDERED: EPOETIN ALFA-EPBX 10,000 UNIT/ML VIAL IVPUSH ONE (08:00)
[2021-05-08 08:02] LABS: ALBUMIN 1.9 g/dl (3.4-5.0); CALCIUM 8.4 mg/dL (8.5-10.1)
[2021-05-08 08:03] LABS: ANION GAP 13 MMOL/L (8-16); BLOOD UREA NITROGEN 65.7 mg/dL (7-18); CO2 25 mmol/L (21-32); GLUCOSE,RANDOM 87 mg/dL (74-106); MAGNESIUM 2.5 mg/dL (1.8-2.4)
[2021-05-08 08:05] LABS: PHOSPHOROUS 6.4 mg/dL (2.5-4.9); SGOT/AST 20 U/L (15-37); SGPT/ALT 9 U/L (13-61)
[2021-05-08 08:07] LABS: BILIRUBIN,TOTAL 0.6 mg/dL (0.2-1); TOT PROT 5.8 g/dl (6.4-8.2)
[2021-05-08 08:08] LABS: ALK PHOS 72 U/L (45-117); CREATININE 8.5 mg/dL (0.55-1.3)
[2021-05-08] MEDS: CARVEDILOL PHOSPHATE CR 10 MG CAPSULE PO SCH (11:00)
[2021-05-08] MEDS: NIFEdipine E.R. 90 MG TABLET PO SCH (11:10)
[2021-05-08] MEDS ORDERED: PT OWN MED DRAWER 7, Y5N ONE (17:21)
[2021-05-09] MEDS: PIPERACILLIN/TAZOB 2.25 GM 2.25 GM in DEXTROSE 5%-WATER - 50 ML IVPB SCH ×3 (06:45→19:42)
[2021-05-09 07:23] LABS: BASO % 0.2 % (0-2.0); EOS % 0.7 % (0-4.5); HEMATOCRIT 23.8 % (35.4-49); HEMOGLOBIN 7.8 GM/dL (11.7-16.9); LYMPH % 7.7 % (8-40); MCH 31.6 pg (25.7-33.7); MCHC 32.9 g/dl (32.0-35.9); MEAN CELL VOLUME 96.1 fl (80-96); MONO % 8.9 % (3.8-10.2); NEUT % 82.5 % (42.8-82.8); PLATELET COUNT 322 K/MM3 (134-434); RBC 2.48 M/mm3 (4.00-5.60); RDW 16.4 % (11.9-15.9)
[2021-05-09] MEDS ORDERED: DEXTROSE 5%-WATER - 50 ML IVPB ONE ×3 (07:38→19:37)
[2021-05-09] MEDS ORDERED: PIPERACILLIN/TAZOBACTAM 2.25 GM VIAL IVPB ONE ×3 (07:38→19:36)
[2021-05-09 07:54] LABS: CALCIUM 8.6 mg/dL (8.5-10.1); MAGNESIUM 2.1 mg/dL (1.8-2.4)
[2021-05-09] MEDS: INSULIN SLIDING SCALE (NOVOLOG) 1 VIAL SQ SCH ×4 (07:54→21:51)
[2021-05-09 07:56] LABS: CREATININE 5.9 mg/dL (0.55-1.3)
[2021-05-09 07:58] LABS: BILIRUBIN,TOTAL 0.6 mg/dL (0.2-1); TOT PROT 5.6 g/dl (6.4-8.2)
[2021-05-09] MEDS: CARVEDILOL PHOSPHATE CR 10 MG CAPSULE PO SCH (10:00)
[2021-05-09] MEDS ORDERED: EPOETIN ALFA-EPBX 10,000 UNIT/ML VIAL IVPUSH ONE (10:15)
[2021-05-09] MEDS: NIFEdipine E.R. 90 MG TABLET PO SCH (11:47)
[2021-05-10] MEDS ORDERED: PIPERACILLIN/TAZOBACTAM 2.25 GM VIAL IVPB ONE ×3 (01:00→16:20)
[2021-05-10] MEDS ORDERED: DEXTROSE 5%-WATER - 50 ML IVPB ONE ×3 (01:00→16:20)
[2021-05-10] MEDS: PIPERACILLIN/TAZOB 2.25 GM 2.25 GM in DEXTROSE 5%-WATER - 50 ML IVPB SCH ×3 (01:11→17:16)
[2021-05-10] MEDS: INSULIN SLIDING SCALE (NOVOLOG) 1 VIAL SQ SCH ×4 (06:05→21:20)
[2021-05-10 07:20] LABS: BASO % 0.5 % (0-2.0); EOS % 0.7 % (0-4.5); HEMATOCRIT 25.1 % (35.4-49); HEMOGLOBIN 8.2 GM/dL (11.7-16.9); LYMPH % 7.5 % (8-40); MCH 31.8 pg (25.7-33.7); MCHC 32.8 g/dl (32.0-35.9); MEAN CELL VOLUME 96.9 fl (80-96); MONO % 7.5 % (3.8-10.2); NEUT % 83.8 % (42.8-82.8); PLATELET COUNT 379 K/MM3 (134-434); RBC 2.59 M/mm3 (4.00-5.60); RDW 16.7 % (11.9-15.9)
[2021-05-10 07:41] LABS: CALCIUM 8.6 mg/dL (8.5-10.1)
[2021-05-10 07:42] LABS: ALBUMIN 1.9 g/dl (3.4-5.0); BLOOD UREA NITROGEN 59.3 mg/dL (7-18); MAGNESIUM 2.3 mg/dL (1.8-2.4)
[2021-05-10 07:45] LABS: PHOSPHOROUS 6.4 mg/dL (2.5-4.9)
[2021-05-10 07:46] LABS: BILIRUBIN,TOTAL 0.6 mg/dL (0.2-1); TOT PROT 5.7 g/dl (6.4-8.2)
[2021-05-10 07:49] LABS: CREATININE 7.4 mg/dL (0.55-1.3)
[2021-05-10] MEDS: NIFEdipine E.R. 90 MG TABLET PO SCH (09:10)
[2021-05-10] MEDS: CARVEDILOL PHOSPHATE CR 10 MG CAPSULE PO SCH (09:10)
[2021-05-10] MEDS ORDERED: SODIUM CHLORIDE 250 ML IV PRN (09:24)
[2021-05-10] MEDS ORDERED: EPOETIN ALFA-EPBX 10,000 UNIT/ML VIAL IVPUSH ONE (10:15)
[2021-05-11] MEDS ORDERED: PIPERACILLIN/TAZOBACTAM 2.25 GM VIAL IVPB ONE ×3 (01:49→17:35)
[2021-05-11] MEDS ORDERED: DEXTROSE 5%-WATER - 50 ML IVPB ONE ×3 (01:50→17:36)
[2021-05-11] MEDS: PIPERACILLIN/TAZOB 2.25 GM 2.25 GM in DEXTROSE 5%-WATER - 50 ML IVPB SCH ×3 (02:03→17:51)
[2021-05-11] MEDS: INSULIN SLIDING SCALE (NOVOLOG) 1 VIAL SQ SCH ×4 (06:26→23:08)
[2021-05-11 08:18] LABS: BASO % 0.4 % (0-2.0); EOS % 0.5 % (0-4.5); HEMATOCRIT 25.5 % (35.4-49); HEMOGLOBIN 8.2 GM/dL (11.7-16.9); LYMPH % 12.6 % (8-40); MCH 31.3 pg (25.7-33.7); MCHC 32.3 g/dl (32.0-35.9); MONO % 9.2 % (3.8-10.2); NEUT % 77.3 % (42.8-82.8); PLATELET COUNT 474 K/MM3 (134-434); RBC 2.63 M/mm3 (4.00-5.60); RDW 16.9 % (11.9-15.9); WHITE BLOOD COUNT 8.9 K/mm3 (4.0-10.0)
[2021-05-11 08:37] LABS: ALBUMIN 1.9 g/dl (3.4-5.0); CALCIUM 8.8 mg/dL (8.5-10.1)
[2021-05-11 08:38] LABS: MAGNESIUM 2.1 mg/dL (1.8-2.4)
[2021-05-11 08:41] LABS: PHOSPHOROUS 4.8 mg/dL (2.5-4.9)
[2021-05-11 08:42] LABS: BILIRUBIN,TOTAL 0.6 mg/dL (0.2-1); TOT PROT 5.7 g/dl (6.4-8.2)
[2021-05-11 08:46] LABS: BLOOD UREA NITROGEN 33.2 mg/dL (7-18)
[2021-05-11] MEDS: NIFEdipine E.R. 90 MG TABLET PO SCH (10:34)
[2021-05-11] MEDS: CARVEDILOL PHOSPHATE CR 10 MG CAPSULE PO SCH (10:34)
[2021-05-11] MEDS: VITAMIN B COMP W-C 1 EA TABLET (NEPHRO-VITE) PO SCH (10:34)
[2021-05-11] MEDS ORDERED: ACETAMINOPHEN 1000 MG/100 ML VIAL (NON FORMULARY) IVPB ONE (18:00)
[2021-05-12] MEDS ORDERED: PIPERACILLIN/TAZOBACTAM 2.25 GM VIAL IVPB ONE ×3 (01:59→17:24)
[2021-05-12] MEDS ORDERED: DEXTROSE 5%-WATER - 50 ML IVPB ONE ×3 (01:59→17:24)
[2021-05-12] MEDS: PIPERACILLIN/TAZOB 2.25 GM 2.25 GM in DEXTROSE 5%-WATER - 50 ML IVPB SCH ×3 (02:01→17:30)
[2021-05-12] MEDS: INSULIN SLIDING SCALE (NOVOLOG) 1 VIAL SQ SCH ×4 (06:55→23:14)
[2021-05-12 08:04] LABS: BASO % 0.4 % (0-2.0); EOS % 1.3 % (0-4.5); HEMATOCRIT 25.3 % (35.4-49); HEMOGLOBIN 8.1 GM/dL (11.7-16.9); LYMPH % 10.5 % (8-40); MCH 31.1 pg (25.7-33.7); MCHC 31.8 g/dl (32.0-35.9); MEAN CELL VOLUME 97.7 fl (80-96); MEAN PLT VOLUME 7.1 fl (7.5-11.1); MONO % 7.3 % (3.8-10.2); NEUT % 80.5 % (42.8-82.8); PLATELET COUNT 507 K/MM3 (134-434); RBC 2.59 M/mm3 (4.00-5.60); RDW 17.1 % (11.9-15.9); WHITE BLOOD COUNT 8.4 K/mm3 (4.0-10.0)
[2021-05-12 08:31] LABS: CALCIUM 8.8 mg/dL (8.5-10.1)
[2021-05-12 08:32] LABS: ALBUMIN 1.9 g/dl (3.4-5.0); MAGNESIUM 2.4 mg/dL (1.8-2.4)
[2021-05-12 08:35] LABS: CREATININE 6.5 mg/dL (0.55-1.3)
[2021-05-12 08:37] LABS: BILIRUBIN,TOTAL 0.5 mg/dL (0.2-1); TOT PROT 5.8 g/dl (6.4-8.2)
[2021-05-12] MEDS ORDERED: PT OWN MED DRAWER 7, Y5N ONE (09:34)
[2021-05-12] MEDS: CARVEDILOL PHOSPHATE CR 10 MG CAPSULE PO SCH (10:39)
[2021-05-12] MEDS: VITAMIN B COMP W-C 1 EA TABLET (NEPHRO-VITE) PO SCH (10:39)
[2021-05-12] MEDS: NIFEdipine E.R. 90 MG TABLET PO SCH (10:39)
[2021-05-12] MEDS ORDERED: VANCOMYCIN 1 GRAM (PRE-DOCKED) 1,000 MG/250 ML BAG IVPB ONE (11:15)
[2021-05-13] MEDS ORDERED: PIPERACILLIN/TAZOBACTAM 2.25 GM VIAL IVPB ONE ×3 (01:46→16:28)
[2021-05-13] MEDS ORDERED: DEXTROSE 5%-WATER - 50 ML IVPB ONE ×3 (01:46→16:28)
[2021-05-13] MEDS: PIPERACILLIN/TAZOB 2.25 GM 2.25 GM in DEXTROSE 5%-WATER - 50 ML IVPB SCH ×3 (01:54→17:08)
[2021-05-13] MEDS: INSULIN SLIDING SCALE (NOVOLOG) 1 VIAL SQ SCH ×4 (06:29→21:48)
[2021-05-13 07:43] LABS: CHLORIDE 102 mmol/L (98-107); SODIUM 142 mmol/L (136-145)
[2021-05-13 07:45] LABS: ALBUMIN 1.9 g/dl (3.4-5.0); ANION GAP 11 MMOL/L (8-16); BLOOD UREA NITROGEN 51.8 mg/dL (7-18); CO2 30 mmol/L (21-32); MAGNESIUM 2.5 mg/dL (1.8-2.4)
[2021-05-13 07:46] LABS: GLUCOSE,RANDOM 128 mg/dL (74-106)
[2021-05-13 07:48] LABS: SGOT/AST 45 U/L (15-37); SGPT/ALT 32 U/L (13-61)
[2021-05-13 07:49] LABS: PHOSPHOROUS 5.7 mg/dL (2.5-4.9)
[2021-05-13 07:50] LABS: BASO % 0.6 % (0-2.0); BILIRUBIN,TOTAL 0.5 mg/dL (0.2-1); EOS % 2.6 % (0-4.5); HEMATOCRIT 24.4 % (35.4-49); HEMOGLOBIN 7.7 GM/dL (11.7-16.9); LYMPH % 13.4 % (8-40); MCH 30.8 pg (25.7-33.7); MCHC 31.6 g/dl (32.0-35.9); MEAN CELL VOLUME 97.6 fl (80-96); MEAN PLT VOLUME 7.3 fl (7.5-11.1); MONO % 7.5 % (3.8-10.2); NEUT % 75.9 % (42.8-82.8); PLATELET COUNT 508 K/MM3 (134-434); RDW 17.1 % (11.9-15.9); TOT PROT 5.9 g/dl (6.4-8.2)
[2021-05-13 07:51] LABS: ALK PHOS 60 U/L (45-117)
[2021-05-13 08:01] LABS: CREATININE 8.3 mg/dL (0.55-1.3)
[2021-05-13] MEDS: NIFEdipine E.R. 90 MG TABLET PO SCH ×2 (09:26→12:21)
[2021-05-13] MEDS: VITAMIN B COMP W-C 1 EA TABLET (NEPHRO-VITE) PO SCH (09:27)
[2021-05-13] MEDS ORDERED: PT OWN MED DRAWER 7, Y5N ONE (09:35)
[2021-05-13] MEDS: CARVEDILOL PHOSPHATE CR 10 MG CAPSULE PO SCH (09:37)
[2021-05-13] MEDS ORDERED: NIFEdipine 10 MG CAPSULE (FP) PO SCH (14:00)
[2021-05-14] MEDS ORDERED: DEXTROSE 5%-WATER - 50 ML IVPB ONE ×2 (00:26→10:16)
[2021-05-14] MEDS ORDERED: PIPERACILLIN/TAZOBACTAM 2.25 GM VIAL IVPB ONE ×2 (00:26→10:16)
[2021-05-14] MEDS: PIPERACILLIN/TAZOB 2.25 GM 2.25 GM in DEXTROSE 5%-WATER - 50 ML IVPB SCH ×2 (03:06→10:22)
[2021-05-14] MEDS: INSULIN SLIDING SCALE (NOVOLOG) 1 VIAL SQ SCH ×4 (05:59→22:40)
[2021-05-14 07:15] LABS: BASO % 0.9 % (0-2.0); EOS % 2.1 % (0-4.5); HEMATOCRIT 23.2 % (35.4-49); HEMOGLOBIN 7.4 GM/dL (11.7-16.9); LYMPH % 14.9 % (8-40); MCH 30.8 pg (25.7-33.7); MCHC 31.8 g/dl (32.0-35.9); MEAN CELL VOLUME 97.1 fl (80-96); MEAN PLT VOLUME 6.9 fl (7.5-11.1); MONO % 10.2 % (3.8-10.2); NEUT % 71.9 % (42.8-82.8); PLATELET COUNT 485 10^3/uL (134-434); RBC 2.39 M/mm3 (4.00-5.60); RDW 17.2 % (11.9-15.9)
[2021-05-14 07:32] LABS: CALCIUM 8.6 mg/dL (8.5-10.1)
[2021-05-14 07:33] LABS: ALBUMIN 1.9 g/dl (3.4-5.0); MAGNESIUM 2.2 mg/dL (1.8-2.4)
[2021-05-14 07:36] LABS: CREATININE 4.9 mg/dL (0.55-1.3)
[2021-05-14 07:37] LABS: BILIRUBIN,TOTAL 0.8 mg/dL (0.2-1); TOT PROT 5.9 g/dl (6.4-8.2)
[2021-05-14] MEDS ORDERED: EPOETIN ALFA-EPBX 20,000 UNIT/ML VIAL SQ ONE (09:48)
[2021-05-14] MEDS ORDERED: PT OWN MED DRAWER 7, Y5N ONE ×4 (10:17→23:24)
[2021-05-14] MEDS: MINERAL OIL/PET HY-PHL TOPICAL OINTMENT 454 GM JAR TP SCH (10:23)
[2021-05-14] MEDS: CARVEDILOL PHOSPHATE CR 10 MG CAPSULE PO SCH (10:23)
[2021-05-14] MEDS: VITAMIN B COMP W-C 1 EA TABLET (NEPHRO-VITE) PO SCH (10:23)
[2021-05-14] MEDS: dilTIAZem HCL 30 MG TABLET PO SCH ×2 (15:32→23:34)
[2021-05-14] MEDS: AMOX TR/POTASSIUM CLAVULANATE 250 MG/5 ML BOTTLE PO SCH (17:18)
[2021-05-15] MEDS: INSULIN SLIDING SCALE (NOVOLOG) 1 VIAL SQ SCH ×3 (06:29→21:20)
[2021-05-15] MEDS: dilTIAZem HCL 30 MG TABLET PO SCH ×3 (06:31→21:16)
[2021-05-15 07:47] LABS: BASO % 0.9 % (0-2.0); EOS % 1.9 % (0-4.5); HEMATOCRIT 22.1 % (35.4-49); HEMOGLOBIN 7.1 GM/dL (11.7-16.9); LYMPH % 15.8 % (8-40); MCH 31.2 pg (25.7-33.7); MCHC 32.3 g/dl (32.0-35.9); MEAN CELL VOLUME 96.6 fl (80-96); MEAN PLT VOLUME 6.7 fl (7.5-11.1); MONO % 9.7 % (3.8-10.2); NEUT % 71.7 % (42.8-82.8); PLATELET COUNT 459 10^3/uL (134-434); RBC 2.28 M/mm3 (4.00-5.60); RDW 17.4 % (11.9-15.9)
[2021-05-15] MEDS: AMOX TR/POTASSIUM CLAVULANATE 250 MG/5 ML BOTTLE PO SCH (08:00)
[2021-05-15 08:01] LABS: ALBUMIN 1.8 g/dl (3.4-5.0); CALCIUM 8.6 mg/dL (8.5-10.1)
[2021-05-15 08:02] LABS: BLOOD UREA NITROGEN 35.3 mg/dL (7-18); MAGNESIUM 2.3 mg/dL (1.8-2.4)
[2021-05-15 08:04] LABS: CREATININE 6.5 mg/dL (0.55-1.3); PHOSPHOROUS 5.9 mg/dL (2.5-4.9)
[2021-05-15 08:06] LABS: BILIRUBIN,TOTAL 0.4 mg/dL (0.2-1); TOT PROT 5.8 g/dl (6.4-8.2)
[2021-05-15 09:24] LABS: ANISOCYTOSIS 2+; MACROCYTOSIS 0; PLATELET ESTIMATE NORMAL
[2021-05-15] MEDS ORDERED: PT OWN MED DRAWER 7, Y5N ONE (10:51)
[2021-05-15] MEDS: CARVEDILOL PHOSPHATE CR 10 MG CAPSULE PO SCH (10:57)
[2021-05-15] MEDS: VITAMIN B COMP W-C 1 EA TABLET (NEPHRO-VITE) PO SCH (11:06)
[2021-05-15] MEDS: MINERAL OIL/PET HY-PHL TOPICAL OINTMENT 454 GM JAR TP SCH (11:06)
[2021-05-15] MEDS ORDERED: LIDOCAINE HCL 1%, 10 MG/ML (20ML VIAL) ONE (13:07)
[2021-05-15] MEDS ORDERED: MIDAZOLAM HCL 2 MG/2 ML SINGLE DOSE VIAL ONE (14:04)
[2021-05-15] MEDS ORDERED: PROPOFOL 20 ML ONE (14:04)
[2021-05-15] MEDS ORDERED: ceFAZolin SODIUM 1 GM VIAL IVPB ONE (16:38)
[2021-05-15] MEDS ORDERED: LIDOCAINE HCL 1%, 10 MG/ML (20ML VIAL) INF ONE (16:48)
[2021-05-15] MEDS ORDERED: ONDANSETRON 4 MG/2 ML VIAL IVPUSH PRN (17:19)
[2021-05-15] MEDS ORDERED: EPOETIN ALFA-EPBX 10,000 UNIT/ML VIAL IVPUSH ONE (17:19)
[2021-05-16] MEDS: dilTIAZem HCL 30 MG TABLET PO SCH ×2 (05:22→17:18)
[2021-05-16] MEDS: INSULIN SLIDING SCALE (NOVOLOG) 1 VIAL SQ SCH ×3 (06:00→17:06)
[2021-05-16 07:41] LABS: BASO % 0.9 % (0-2.0); HEMATOCRIT 22.7 % (35.4-49); HEMOGLOBIN 7.3 GM/dL (11.7-16.9); LYMPH % 6.9 % (8-40); MCH 30.8 pg (25.7-33.7); MCHC 32.2 g/dl (32.0-35.9); MEAN CELL VOLUME 95.6 fl (80-96); MONO % 10.5 % (3.8-10.2); NEUT % 79.7 % (42.8-82.8); PLATELET COUNT 472 10^3/uL (134-434); RBC 2.37 M/mm3 (4.00-5.60); RDW 17.1 % (11.9-15.9); WHITE BLOOD COUNT 7.3 K/mm3 (4.0-10.0)
[2021-05-16 07:52] LABS: CHLORIDE 101 mmol/L (98-107); SODIUM 140 mmol/L (136-145)
[2021-05-16 07:54] LABS: CALCIUM 8.6 mg/dL (8.5-10.1)
[2021-05-16 07:55] LABS: ALBUMIN 1.8 g/dl (3.4-5.0); ANION GAP 10 MMOL/L (8-16); BLOOD UREA NITROGEN 47.6 mg/dL (7-18); CO2 29 mmol/L (21-32); GLUCOSE,RANDOM 99 mg/dL (74-106); MAGNESIUM 2.4 mg/dL (1.8-2.4)
[2021-05-16 07:57] LABS: SGPT/ALT 29 U/L (13-61)
[2021-05-16 07:58] LABS: PHOSPHOROUS 7.3 mg/dL (2.5-4.9); SGOT/AST 41 U/L (15-37)
[2021-05-16 07:59] LABS: BILIRUBIN,TOTAL 0.4 mg/dL (0.2-1); TOT PROT 5.9 g/dl (6.4-8.2)
[2021-05-16 08:00] LABS: ALK PHOS 68 U/L (45-117)
[2021-05-16 08:11] LABS: CREATININE 8.6 mg/dL (0.55-1.3)
[2021-05-16 09:18] LABS: ANISOCYTOSIS 1+; MACROCYTOSIS 1+; PLATELET ESTIMATE NORMAL
[2021-05-16] MEDS ORDERED: CARVEDILOL PHOSPHATE CR 10 MG CAPSULE PO SCH (10:00)
[2021-05-16] MEDS ORDERED: VITAMIN B COMP W-C 1 EA TABLET (NEPHRO-VITE) PO SCH (10:00)
[2021-05-16] MEDS ORDERED: MINERAL OIL/PET HY-PHL TOPICAL OINTMENT 454 GM JAR TP SCH (10:00)
[2021-05-16] MEDS: AMOX TR/POTASSIUM CLAVULANATE 250 MG/5 ML BOTTLE PO SCH ×2 (13:03→17:18)
[2021-05-16 20:37] VITALS: BP 141/51; PULSE 59; TEMP 97.8
== END 2021-05-16 21:01 | DRG 981 ==
LOC: JER 07:00 → JERBED 09:56 → JICU 16:05 → J7W 05-05 15:59 → JICU 05-07 16:30 → J7W 05-09 18:44
PROVIDERS: ADMIT Internal Medicine Pulmonary Disease; ATTEND Family Medicine
PROC: 03LY3ZZ Occlusion of Upper Artery, Percutaneous Approach (ICD-10-PCS; principal; 2021-04-30 10:00)
PROC: 5A1D70Z Performance of Urinary Filtration, Intermittent, Less than 6 Hours Per Day (ICD-10-PCS; 2021-05-06)
PROC: 02HV33Z Insertion of Infusion Device into Superior Vena Cava, Percutaneous Approach (ICD-10-PCS; 2021-05-08)
PROC: B548ZZA Ultrasonography of Superior Vena Cava, Guidance (ICD-10-PCS; 2021-05-08)
PROC: 05HM33Z Insertion of Infusion Device into Right Internal Jugular Vein, Percutaneous Approach (ICD-10-PCS; 2021-05-15)
PROC: B543ZZA Ultrasonography of Right Jugular Veins, Guidance (ICD-10-PCS; 2021-05-15)
DX: I63.511 Cerebral infarction due to unspecified occlusion or stenosis of right middle cerebral artery (principal); N18.6 End stage renal disease; J69.0 Pneumonitis due to inhalation of food and vomit; I12.0 Hypertensive chronic kidney disease with stage 5 chronic kidney disease or end stage renal disease; I69.354 Hemiplegia and hemiparesis following cerebral infarction affecting left non-dominant side; I16.1 Hypertensive emergency; T82.838A Hemorrhage due to vascular prosthetic devices, implants and grafts, initial encounter; D62 Acute posthemorrhagic anemia; I24.8 Other forms of acute ischemic heart disease; T82.7XXA Infection and inflammatory reaction due to other cardiac and vascular devices, implants and grafts, initial encounter; E11.22 Type 2 diabetes mellitus with diabetic chronic kidney disease; Z99.2 Dependence on renal dialysis; Y83.8 Other surgical procedures as the cause of abnormal reaction of the patient, or of later complication, without mention of misadventure at the time of the procedure; R47.01 Aphasia; E87.5 Hyperkalemia; Z86.16 Personal history of COVID-19
CPT/HCPCS: 36415; 70450-TC; 70496-TC; 70498-TC; 71045-TC-FY; 71046-TC-FY; 74230-TC-FY; 76000-TC-FY; 80053; 80061; 82550; 82962; 83036; 83721; 83735; 84100; 84132; 84439; 84443; 84480; 84484; 85025; 85610; 85730; 86704; 86706; 86707; 86708; 86709; 86803; 86850; 86900; 86901; 86922; 87040; 87340; 92611-GN; 93005; 93010; 93306-TC; 94760; 97116-GP; 97161-GP; 99285-25; C9803; G0480; J0131; J1644; J2997; Q5106; U0003; U0005

== ENCOUNTER 2021-05-20 17:07 | Inpatient (IN) | payer OTHER ==
[2021-05-20 17:39] VITALS: BMI 19.5
[2021-05-20] MEDS ORDERED: PIPERACILLIN/TAZOB 3.375 GM 3.375 GM in DEXTROSE 5%-WATER - 50 ML IVPB ONE (18:25)
[2021-05-20] MEDS ORDERED: VANCOMYCIN 1 GM in D5W (PRE-DOCKED) 1,000 MG/250 ML IVPB ONE (18:25)
[2021-05-20] MEDS ORDERED: ACETAMINOPHEN 1000 MG/100 ML VIAL (NON FORMULARY) IVPB ONE (18:25)
[2021-05-20] MEDS ORDERED: SODIUM CHLORIDE 0.9% 500 ML INFUS.BAG IV ONE (18:25)
[2021-05-20 19:34] LABS: BASO % 0.6 % (0-2.0); EOS % 1.5 % (0-4.5); HEMATOCRIT 20.9 % (35.4-49); LYMPH % 8.2 % (8-40); MCH 30.2 pg (25.7-33.7); MCHC 31.6 g/dl (32.0-35.9); MEAN CELL VOLUME 95.5 fl (80-96); MEAN PLT VOLUME 6.5 fl (7.5-11.1); MONO % 6.1 % (3.8-10.2); NEUT % 83.6 % (42.8-82.8); PLATELET COUNT 436 10^3/uL (134-434); RBC 2.19 M/mm3 (4.00-5.60); WHITE BLOOD COUNT 11.8 K/mm3 (4.0-10.0)
[2021-05-20 19:37] LABS: HEMOGLOBIN 6.6 GM/dL (11.7-16.9)
[2021-05-20 19:39] LABS: INR 1.14 (0.83-1.09)
[2021-05-20 19:41] LABS: ACTIVATED PTT 24.8 SECONDS (25.2-36.5)
[2021-05-20] MEDS ORDERED: ACETAMINOPHEN INJECTION 100 ML IVPB ONE (19:48)
[2021-05-20] MEDS ORDERED: PIPERACILLIN/TAZOB 3.375 GM 3.375 GM/50 ML BAG IVPB ONE (19:48)
[2021-05-20 20:18] LABS: CALCIUM 8.1 mg/dL (8.5-10.1)
[2021-05-20 20:19] LABS: ALBUMIN 1.7 g/dl (3.4-5.0)
[2021-05-20 20:21] LABS: BILIRUBIN,TOTAL 0.6 mg/dL (0.2-1)
[2021-05-20 20:22] LABS: TOT PROT 5.9 g/dl (6.4-8.2)
[2021-05-20] MEDS ORDERED: VANCOMYCIN 1 GRAM (PRE-DOCKED) 1,000 MG/250 ML BAG IVPB ONE (20:33)
[2021-05-20 20:47] LABS: BLOOD UREA NITROGEN 25.4 mg/dL (7-18)
[2021-05-21 06:27] LABS: BASO % 0.6 % (0-2.0); EOS % 1.3 % (0-4.5); HEMATOCRIT 26.1 % (35.4-49); HEMOGLOBIN 8.3 GM/dL (11.7-16.9); LYMPH % 7.8 % (8-40); MCH 29.6 pg (25.7-33.7); MCHC 31.7 g/dl (32.0-35.9); MEAN CELL VOLUME 93.4 fl (80-96); MEAN PLT VOLUME 6.9 fl (7.5-11.1); MONO % 6.6 % (3.8-10.2); NEUT % 83.7 % (42.8-82.8); PLATELET COUNT 438 10^3/uL (134-434); RBC 2.79 M/mm3 (4.00-5.60); WHITE BLOOD COUNT 11.8 K/mm3 (4.0-10.0)
[2021-05-21 06:49] LABS: CALCIUM 8.1 mg/dL (8.5-10.1)
[2021-05-21 06:50] LABS: ALBUMIN 1.7 g/dl (3.4-5.0); BLOOD UREA NITROGEN 30.5 mg/dL (7-18); MAGNESIUM 2.1 mg/dL (1.8-2.4)
[2021-05-21 06:53] LABS: CREATININE 4.4 mg/dL (0.55-1.3)
[2021-05-21 06:54] LABS: BILIRUBIN,TOTAL 0.7 mg/dL (0.2-1)
[2021-05-21 06:55] LABS: TOT PROT 5.8 g/dl (6.4-8.2)
[2021-05-21] MEDS ORDERED: EPOETIN ALFA-EPBX 4,000 UNIT/ML VIAL SQ ONE (11:00)
[2021-05-21] MEDS ORDERED: SODIUM CHLORIDE 250 ML IV PRN (11:01)
[2021-05-21] MEDS: hydrALAZINE HCL 20 MG/ML VIAL IVPUSH SCH (20:41)
[2021-05-21] MEDS: AMINO ACIDS 4.25%/D5W 1,000 ML IV SCH (20:41)
[2021-05-22] MEDS: hydrALAZINE HCL 20 MG/ML VIAL IVPUSH SCH ×2 (02:45→10:39)
[2021-05-22] MEDS ORDERED: EPOETIN ALFA-EPBX 4,000 UNIT/ML VIAL SQ ONE (14:59)
[2021-05-22] MEDS ORDERED: ACETAMINOPHEN 325 MG TABLET (FP) PO PRN (17:03)
[2021-05-22] MEDS: CALCIUM ACETATE 667 MG CAPSULE (FP) PO SCH (18:05)
[2021-05-22] MEDS: AMINO ACIDS 4.25%/D5W 1,000 ML IV SCH (21:05)
[2021-05-22] MEDS: dilTIAZem HCL 30 MG TABLET PO SCH (21:46)
[2021-05-22] MEDS: ATORVASTATIN CA 80 MG TABLET (FP) PO SCH (21:46)
[2021-05-23] MEDS: dilTIAZem HCL 30 MG TABLET PO SCH ×3 (06:01→23:56)
[2021-05-23 07:09] LABS: HEMATOCRIT 24.7 % (35.4-49); HEMOGLOBIN 8.1 GM/dL (11.7-16.9); MCHC 32.8 g/dl (32.0-35.9); MEAN CELL VOLUME 91.4 fl (80-96); MEAN PLT VOLUME 6.7 fl (7.5-11.1); PLATELET COUNT 409 10^3/uL (134-434); RDW 18.6 % (11.9-15.9); WHITE BLOOD COUNT 7.4 K/mm3 (4.0-10.0)
[2021-05-23] MEDS ORDERED: PT OWN MED DRAWER 7, Y5N ONE ×3 (08:32→15:04)
[2021-05-23] MEDS: CALCIUM ACETATE 667 MG CAPSULE (FP) PO SCH ×3 (09:54→17:40)
[2021-05-23] MEDS: CARVEDILOL PHOSPHATE CR 10 MG CAPSULE PO SCH (09:56)
[2021-05-23] MEDS ORDERED: ASPIRIN 81 MG CHEWABLE TABLETS PO SCH (10:00)
[2021-05-23] MEDS: AMINO ACIDS 4.25%/D5W 1,000 ML IV SCH (21:56)
[2021-05-23] MEDS: COLLAGENASE CLOSTRIDIUM HIST. 30 GRAMS TUBE TP SCH (22:51)
[2021-05-23] MEDS: ATORVASTATIN CA 80 MG TABLET (FP) PO SCH (23:56)
[2021-05-24] MEDS: dilTIAZem HCL 30 MG TABLET PO SCH ×3 (05:49→21:55)
[2021-05-24] MEDS: CALCIUM ACETATE 667 MG CAPSULE (FP) PO SCH ×3 (09:15→17:04)
[2021-05-24] MEDS ORDERED: GLUCAGON 1 MG KIT IVPUSH ONE (10:50)
[2021-05-24] MEDS: COLLAGENASE CLOSTRIDIUM HIST. 30 GRAMS TUBE TP SCH ×2 (11:58→21:56)
[2021-05-24] MEDS ORDERED: CEFTRIAXONE 1 GM in DEXTROSE 5%-WATER - 50 ML IVPB ONE (12:00)
[2021-05-24] MEDS ORDERED: SODIUM CHLORIDE 250 ML IV PRN (14:15)
[2021-05-24] MEDS ORDERED: EPOETIN ALFA-EPBX 4,000 UNIT/ML VIAL SQ ONE (14:30)
[2021-05-24] MEDS ORDERED: PT OWN MED DRAWER 7, Y5N ONE (14:45)
[2021-05-24] MEDS: CARVEDILOL PHOSPHATE CR 10 MG CAPSULE PO SCH (16:33)
[2021-05-24] MEDS: AMINO ACIDS 4.25%/D5W 1,000 ML IV SCH (21:54)
[2021-05-24] MEDS: ATORVASTATIN CA 80 MG TABLET (FP) PO SCH (21:56)
[2021-05-25] MEDS: dilTIAZem HCL 30 MG TABLET PO SCH ×3 (06:39→21:42)
[2021-05-25] MEDS ORDERED: PT OWN MED DRAWER 7, Y5N ONE (09:54)
[2021-05-25] MEDS: COLLAGENASE CLOSTRIDIUM HIST. 30 GRAMS TUBE TP SCH ×2 (10:01→22:25)
[2021-05-25] MEDS: CARVEDILOL PHOSPHATE CR 10 MG CAPSULE PO SCH (10:01)
[2021-05-25] MEDS: CALCIUM ACETATE 667 MG CAPSULE (FP) PO SCH ×3 (10:12→17:15)
[2021-05-25] MEDS: AMINO ACIDS 4.25%/D5W 1,000 ML IV SCH (21:41)
[2021-05-25] MEDS: ATORVASTATIN CA 80 MG TABLET (FP) PO SCH (21:42)
[2021-05-26] MEDS: dilTIAZem HCL 30 MG TABLET PO SCH ×3 (06:34→22:57)
[2021-05-26] MEDS ORDERED: ASPIRIN 325 MG TABLET PO SCH (10:00)
[2021-05-26] MEDS ORDERED: METOCLOPRAMIDE HCL 10 MG TABLET (FP) PO ONE (10:39)
[2021-05-26] MEDS ORDERED: PT OWN MED DRAWER 7, Y5N ONE (10:46)
[2021-05-26] MEDS: COLLAGENASE CLOSTRIDIUM HIST. 30 GRAMS TUBE TP SCH ×2 (10:59→23:08)
[2021-05-26] MEDS: CALCIUM ACETATE 667 MG CAPSULE (FP) PO SCH ×3 (10:59→18:13)
[2021-05-26] MEDS: CARVEDILOL PHOSPHATE CR 10 MG CAPSULE PO SCH (10:59)
[2021-05-26] MEDS ORDERED: SODIUM CHLORIDE 250 ML IV PRN (12:52)
[2021-05-26 15:54] LABS: HEMATOCRIT 20.7 % (35.4-49); MCH 29.2 pg (25.7-33.7); MCHC 32.3 g/dl (32.0-35.9); MEAN CELL VOLUME 90.7 fl (80-96); MEAN PLT VOLUME 6.9 fl (7.5-11.1); PLATELET COUNT 365 10^3/uL (134-434); RBC 2.28 M/mm3 (4.00-5.60); RDW 18.1 % (11.9-15.9); WHITE BLOOD COUNT 7.1 K/mm3 (4.0-10.0)
[2021-05-26 16:04] LABS: HEMOGLOBIN 6.7 GM/dL (11.7-16.9)
[2021-05-26] MEDS: METOCLOPRAMIDE HCL 10 MG TABLET (FP) PO SCH (18:13)
[2021-05-26] MEDS ORDERED: METOCLOPRAMIDE HCL 10 MG/10 ML UNIT DOSE CUP GT SCH (22:00)
[2021-05-26] MEDS: ATORVASTATIN CA 80 MG TABLET (FP) PO SCH (22:57)
[2021-05-27] MEDS ORDERED: PT OWN MED DRAWER 7, Y5N ONE ×2 (04:15→10:09)
[2021-05-27] MEDS: dilTIAZem HCL 30 MG TABLET PO SCH ×4 (06:51→17:25)
[2021-05-27] MEDS: METOCLOPRAMIDE HCL 10 MG TABLET (FP) PO SCH ×2 (06:51→16:16)
[2021-05-27] MEDS: CALCIUM ACETATE 667 MG CAPSULE (FP) PO SCH ×3 (08:11→17:25)
[2021-05-27 08:20] LABS: BASO % 0.5 % (0-2.0); EOS % 1.3 % (0-4.5); HEMATOCRIT 25.5 % (35.4-49); HEMOGLOBIN 8.5 GM/dL (11.7-16.9); LYMPH % 8.9 % (8-40); MCH 29.6 pg (25.7-33.7); MCHC 33.4 g/dl (32.0-35.9); MEAN CELL VOLUME 88.4 fl (80-96); MEAN PLT VOLUME 6.8 fl (7.5-11.1); MONO % 5.8 % (3.8-10.2); NEUT % 83.5 % (42.8-82.8); PLATELET COUNT 401 10^3/uL (134-434); RBC 2.89 M/mm3 (4.00-5.60); RDW 16.8 % (11.9-15.9); WHITE BLOOD COUNT 7.5 K/mm3 (4.0-10.0)
[2021-05-27 08:35] LABS: ALBUMIN 1.6 g/dl (3.4-5.0); CALCIUM 8.2 mg/dL (8.5-10.1)
[2021-05-27 08:38] LABS: CREATININE 5.9 mg/dL (0.55-1.3)
[2021-05-27 08:40] LABS: BILIRUBIN,TOTAL 0.9 mg/dL (0.2-1); TOT PROT 5.6 g/dl (6.4-8.2)
[2021-05-27 08:42] LABS: BLOOD UREA NITROGEN 79.1 mg/dL (7-18)
[2021-05-27] MEDS: CARVEDILOL PHOSPHATE CR 10 MG CAPSULE PO SCH (10:54)
[2021-05-27] MEDS: COLLAGENASE CLOSTRIDIUM HIST. 30 GRAMS TUBE TP SCH ×2 (10:54→22:09)
[2021-05-27] MEDS: ATORVASTATIN CA 80 MG TABLET (FP) PO SCH (22:09)
[2021-05-28] MEDS: dilTIAZem HCL 30 MG TABLET PO SCH ×4 (00:41→17:03)
[2021-05-28] MEDS: METOCLOPRAMIDE HCL 10 MG TABLET (FP) PO SCH ×2 (06:18→17:03)
[2021-05-28] MEDS ORDERED: PT OWN MED DRAWER 7, Y5N ONE (09:41)
[2021-05-28] MEDS: CALCIUM ACETATE 667 MG CAPSULE (FP) PO SCH ×3 (09:46→17:02)
[2021-05-28] MEDS: COLLAGENASE CLOSTRIDIUM HIST. 30 GRAMS TUBE TP SCH ×2 (09:46→22:17)
[2021-05-28] MEDS: CARVEDILOL PHOSPHATE CR 20 MG CAPSULE PO SCH (11:26)
[2021-05-28] MEDS ORDERED: hydrALAZINE HCL 25 MG TABLET (FP) PO ONE (18:29)
[2021-05-28] MEDS: hydrALAZINE HCL 25 MG TABLET (FP) PO SCH (22:16)
[2021-05-28] MEDS: APIXABAN 2.5 MG TABLET PO SCH (22:17)
[2021-05-28] MEDS: ATORVASTATIN CA 80 MG TABLET (FP) PO SCH (22:17)
[2021-05-29] MEDS: dilTIAZem HCL 30 MG TABLET PO SCH ×5 (00:13→23:52)
[2021-05-29] MEDS: hydrALAZINE HCL 25 MG TABLET (FP) PO SCH ×3 (06:02→22:38)
[2021-05-29] MEDS: METOCLOPRAMIDE HCL 10 MG/10 ML UNIT DOSE CUP PO SCH ×2 (06:03→17:16)
[2021-05-29] MEDS ORDERED: SODIUM CHLORIDE 250 ML IV PRN (06:23)
[2021-05-29 07:34] LABS: BASO % 0.7 % (0-2.0); EOS % 2.3 % (0-4.5); HEMATOCRIT 28.5 % (35.4-49); HEMOGLOBIN 9.3 GM/dL (11.7-16.9); LYMPH % 11.1 % (8-40); MCH 29.5 pg (25.7-33.7); MCHC 32.8 g/dl (32.0-35.9); MEAN CELL VOLUME 90.1 fl (80-96); MEAN PLT VOLUME 6.8 fl (7.5-11.1); MONO % 6.2 % (3.8-10.2); NEUT % 79.7 % (42.8-82.8); PLATELET COUNT 468 10^3/uL (134-434); RBC 3.16 M/mm3 (4.00-5.60); RDW 17.6 % (11.9-15.9); WHITE BLOOD COUNT 8.4 K/mm3 (4.0-10.0)
[2021-05-29 07:50] LABS: CALCIUM 8.4 mg/dL (8.5-10.1)
[2021-05-29 07:51] LABS: ALBUMIN 1.7 g/dl (3.4-5.0)
[2021-05-29 07:54] LABS: CREATININE 5.2 mg/dL (0.55-1.3)
[2021-05-29 07:55] LABS: BILIRUBIN,TOTAL 0.4 mg/dL (0.2-1)
[2021-05-29] MEDS: CALCIUM ACETATE 667 MG CAPSULE (FP) PO SCH ×3 (09:09→17:16)
[2021-05-29 09:12] LABS: BLOOD UREA NITROGEN 53.8 mg/dL (7-18)
[2021-05-29] MEDS: APIXABAN 2.5 MG TABLET PO SCH ×2 (10:13→22:38)
[2021-05-29] MEDS: CARVEDILOL PHOSPHATE CR 20 MG CAPSULE PO SCH (10:14)
[2021-05-29] MEDS: COLLAGENASE CLOSTRIDIUM HIST. 30 GRAMS TUBE TP SCH ×2 (10:15→22:38)
[2021-05-29] MEDS: NYSTATIN 100,000 UNIT/GM TOPICAL CREAM 15 GM TUBE TP SCH ×2 (17:24→23:52)
[2021-05-29] MEDS: ATORVASTATIN CA 80 MG TABLET (FP) PO SCH (22:38)
[2021-05-29] MEDS: MUPIROCIN CA 2% TOPICAL CREAM 15 GM TUBE TP SCH (22:38)
[2021-05-30] MEDS: dilTIAZem HCL 30 MG TABLET PO SCH (05:55)
[2021-05-30] MEDS: hydrALAZINE HCL 25 MG TABLET (FP) PO SCH ×3 (05:55→22:02)
[2021-05-30] MEDS: NYSTATIN 100,000 UNIT/GM TOPICAL CREAM 15 GM TUBE TP SCH ×4 (05:56→23:30)
[2021-05-30] MEDS: METOCLOPRAMIDE HCL 10 MG/10 ML UNIT DOSE CUP PO SCH ×2 (06:01→17:25)
[2021-05-30] MEDS ORDERED: ACETAMINOPHEN 325 MG TABLET (FP) PO PRN (07:39)
[2021-05-30] MEDS ORDERED: APIXABAN 2.5 MG TABLET PO SCH (10:00)
[2021-05-30] MEDS: amLODIPine BESYLATE 10 MG TABLET (FP) PO SCH (11:08)
[2021-05-30] MEDS: EZETIMIBE 10 MG TABLET (FP) PO SCH (11:08)
[2021-05-30] MEDS: CARVEDILOL PHOSPHATE CR 20 MG CAPSULE PO SCH (11:09)
[2021-05-30] MEDS: MUPIROCIN CA 2% TOPICAL CREAM 15 GM TUBE TP SCH ×2 (11:10→22:02)
[2021-05-30] MEDS: CALCIUM ACETATE 667 MG CAPSULE (FP) PO SCH ×3 (11:17→17:25)
[2021-05-30] MEDS: COLLAGENASE CLOSTRIDIUM HIST. 30 GRAMS TUBE TP SCH ×2 (14:52→22:02)
[2021-05-30] MEDS ORDERED: PT OWN MED DRAWER 7, Y5N ONE (17:43)
[2021-05-30] MEDS ORDERED: ATORVASTATIN CA 80 MG TABLET (FP) PO SCH (22:00)
[2021-05-31] MEDS: hydrALAZINE HCL 25 MG TABLET (FP) PO SCH ×2 (05:53→14:35)
[2021-05-31] MEDS: NYSTATIN 100,000 UNIT/GM TOPICAL CREAM 15 GM TUBE TP SCH ×3 (05:53→17:03)
[2021-05-31] MEDS: METOCLOPRAMIDE HCL 10 MG/10 ML UNIT DOSE CUP PO SCH ×2 (06:01→16:44)
[2021-05-31] MEDS ORDERED: EPOETIN ALFA-EPBX 4,000 UNIT/ML VIAL SQ ONE (08:00)
[2021-05-31] MEDS ORDERED: SODIUM CHLORIDE 250 ML IV PRN (08:00)
[2021-05-31 08:36] LABS: HEMATOCRIT 24.8 % (35.4-49); HEMOGLOBIN 7.9 GM/dL (11.7-16.9); MCH 28.8 pg (25.7-33.7); MEAN PLT VOLUME 6.8 fl (7.5-11.1); PLATELET COUNT 412 10^3/uL (134-434); RBC 2.75 M/mm3 (4.00-5.60); RDW 16.6 % (11.9-15.9); WHITE BLOOD COUNT 8.2 K/mm3 (4.0-10.0)
[2021-05-31 09:00] LABS: CALCIUM 8.1 mg/dL (8.5-10.1)
[2021-05-31 09:01] LABS: ALBUMIN 1.5 g/dl (3.4-5.0); BLOOD UREA NITROGEN 45.4 mg/dL (7-18)
[2021-05-31 09:04] LABS: CREATININE 4.8 mg/dL (0.55-1.3)
[2021-05-31 09:05] LABS: BILIRUBIN,TOTAL 0.4 mg/dL (0.2-1); TOT PROT 5.4 g/dl (6.4-8.2)
[2021-05-31] MEDS: CALCIUM ACETATE 667 MG CAPSULE (FP) PO SCH ×3 (10:16→16:44)
[2021-05-31] MEDS: EZETIMIBE 10 MG TABLET (FP) PO SCH (10:17)
[2021-05-31] MEDS: COLLAGENASE CLOSTRIDIUM HIST. 30 GRAMS TUBE TP SCH ×2 (10:17→21:36)
[2021-05-31] MEDS: amLODIPine BESYLATE 10 MG TABLET (FP) PO SCH (10:17)
[2021-05-31] MEDS: CARVEDILOL PHOSPHATE CR 20 MG CAPSULE PO SCH (10:18)
[2021-05-31] MEDS: MUPIROCIN CA 2% TOPICAL CREAM 15 GM TUBE TP SCH ×2 (10:20→21:36)
[2021-05-31] MEDS ORDERED: PT OWN MED DRAWER 7, Y5N ONE (11:35)
[2021-05-31] MEDS ORDERED: ACETAMINOPHEN 650 MG/20.3 ML ORAL SOLUTION (CUPS) GT PRN (18:32)
[2021-05-31] MEDS: hydrALAZINE HCL 25 MG TABLET (FP) GT SCH (21:36)
[2021-05-31] MEDS: ATORVASTATIN CA 80 MG TABLET (FP) GT SCH (21:36)
[2021-06-01] MEDS: NYSTATIN 100,000 UNIT/GM TOPICAL CREAM 15 GM TUBE TP SCH ×4 (00:05→18:39)
[2021-06-01] MEDS: METOCLOPRAMIDE HCL 10 MG/10 ML UNIT DOSE CUP GT SCH ×2 (06:41→16:11)
[2021-06-01] MEDS: hydrALAZINE HCL 25 MG TABLET (FP) GT SCH ×3 (06:41→22:43)
[2021-06-01 09:18] LABS: BASO % 0.9 % (0-2.0); EOS % 2.8 % (0-4.5); HEMATOCRIT 25.5 % (35.4-49); HEMOGLOBIN 8.1 GM/dL (11.7-16.9); LYMPH % 10.1 % (8-40); MCH 28.9 pg (25.7-33.7); MCHC 31.7 g/dl (32.0-35.9); MEAN CELL VOLUME 91.1 fl (80-96); MEAN PLT VOLUME 7.2 fl (7.5-11.1); NEUT % 80.2 % (42.8-82.8); PLATELET COUNT 379 10^3/uL (134-434); RDW 16.8 % (11.9-15.9); WHITE BLOOD COUNT 7.3 K/mm3 (4.0-10.0)
[2021-06-01] MEDS ORDERED: CARVEDILOL PHOSPHATE CR 20 MG CAPSULE NR SCH (10:00)
[2021-06-01] MEDS ORDERED: PT OWN MED DRAWER 7, Y5N ONE (10:18)
[2021-06-01] MEDS: amLODIPine BESYLATE 10 MG TABLET (FP) GT SCH (10:19)
[2021-06-01] MEDS: EZETIMIBE 10 MG TABLET (FP) GT SCH (10:19)
[2021-06-01] MEDS: CALCIUM ACETATE 667 MG CAPSULE (FP) GT SCH ×3 (10:19→18:38)
[2021-06-01] MEDS: MUPIROCIN CA 2% TOPICAL CREAM 15 GM TUBE TP SCH ×2 (10:21→22:43)
[2021-06-01] MEDS: COLLAGENASE CLOSTRIDIUM HIST. 30 GRAMS TUBE TP SCH ×2 (12:04→22:43)
[2021-06-01] MEDS: CARVEDILOL 12.5 MG TABLET (FP) GT SCH (22:43)
[2021-06-01] MEDS: ATORVASTATIN CA 80 MG TABLET (FP) GT SCH (22:43)
[2021-06-02] MEDS: NYSTATIN 100,000 UNIT/GM TOPICAL CREAM 15 GM TUBE TP SCH ×5 (00:15→23:20)
[2021-06-02] MEDS: hydrALAZINE HCL 25 MG TABLET (FP) GT SCH ×3 (05:29→22:21)
[2021-06-02] MEDS: METOCLOPRAMIDE HCL 10 MG/10 ML UNIT DOSE CUP GT SCH ×2 (06:33→18:07)
[2021-06-02] MEDS: CARVEDILOL 12.5 MG TABLET (FP) GT SCH ×2 (10:24→22:21)
[2021-06-02] MEDS: amLODIPine BESYLATE 10 MG TABLET (FP) GT SCH (10:24)
[2021-06-02] MEDS: EZETIMIBE 10 MG TABLET (FP) GT SCH (10:25)
[2021-06-02] MEDS: CALCIUM ACETATE 667 MG CAPSULE (FP) GT SCH ×3 (10:25→18:07)
[2021-06-02] MEDS: MUPIROCIN CA 2% TOPICAL CREAM 15 GM TUBE TP SCH ×2 (10:25→22:22)
[2021-06-02] MEDS: COLLAGENASE CLOSTRIDIUM HIST. 30 GRAMS TUBE TP SCH ×2 (10:26→22:21)
[2021-06-02] MEDS ORDERED: PT OWN MED DRAWER 7, Y5N ONE ×2 (15:19→19:34)
[2021-06-02] MEDS: ATORVASTATIN CA 80 MG TABLET (FP) GT SCH (22:21)
[2021-06-03] MEDS: hydrALAZINE HCL 25 MG TABLET (FP) GT SCH ×3 (06:36→22:23)
[2021-06-03] MEDS: METOCLOPRAMIDE HCL 10 MG/10 ML UNIT DOSE CUP GT SCH ×2 (06:36→15:55)
[2021-06-03] MEDS: NYSTATIN 100,000 UNIT/GM TOPICAL CREAM 15 GM TUBE TP SCH ×4 (06:37→17:00)
[2021-06-03] MEDS: CALCIUM ACETATE 667 MG CAPSULE (FP) GT SCH ×3 (07:49→16:49)
[2021-06-03] MEDS: CARVEDILOL 12.5 MG TABLET (FP) GT SCH ×3 (09:00→22:23)
[2021-06-03] MEDS: EZETIMIBE 10 MG TABLET (FP) GT SCH (09:00)
[2021-06-03] MEDS: amLODIPine BESYLATE 10 MG TABLET (FP) GT SCH ×2 (09:00→10:00)
[2021-06-03] MEDS: MUPIROCIN CA 2% TOPICAL CREAM 15 GM TUBE TP SCH ×2 (09:01→22:23)
[2021-06-03] MEDS ORDERED: SODIUM CHLORIDE 250 ML IV PRN (10:25)
[2021-06-03 12:23] LABS: BASO % 0.9 % (0-2.0); HEMATOCRIT 22.7 % (35.4-49); HEMOGLOBIN 7.4 GM/dL (11.7-16.9); MCH 29.3 pg (25.7-33.7); MCHC 32.7 g/dl (32.0-35.9); MEAN CELL VOLUME 89.6 fl (80-96); MEAN PLT VOLUME 6.9 fl (7.5-11.1); MONO % 4.6 % (3.8-10.2); NEUT % 83.5 % (42.8-82.8); PLATELET COUNT 382 10^3/uL (134-434); RBC 2.54 M/mm3 (4.00-5.60); RDW 17.1 % (11.9-15.9); WHITE BLOOD COUNT 9.7 K/mm3 (4.0-10.0)
[2021-06-03] MEDS ORDERED: EPOETIN ALFA-EPBX 10,000 UNIT/ML VIAL IVPUSH ONE (12:30)
[2021-06-03] MEDS: ALBUMIN HUMAN 25% 12.5 GM/50 ML VIAL IVPB SCH ×4 (12:37→14:55)
[2021-06-03] MEDS: COLLAGENASE CLOSTRIDIUM HIST. 30 GRAMS TUBE TP SCH ×2 (16:43→22:23)
[2021-06-03] MEDS: APIXABAN 2.5 MG TABLET PO SCH (22:22)
[2021-06-03] MEDS: ATORVASTATIN CA 80 MG TABLET (FP) GT SCH (22:23)
[2021-06-04] MEDS: NYSTATIN 100,000 UNIT/GM TOPICAL CREAM 15 GM TUBE TP SCH ×4 (01:27→17:45)
[2021-06-04] MEDS: hydrALAZINE HCL 25 MG TABLET (FP) GT SCH ×3 (05:53→21:43)
[2021-06-04] MEDS: METOCLOPRAMIDE HCL 10 MG/10 ML UNIT DOSE CUP GT SCH ×2 (06:00→16:44)
[2021-06-04 06:58] LABS: CALCIUM 8.5 mg/dL (8.5-10.1)
[2021-06-04 06:59] LABS: BLOOD UREA NITROGEN 41.8 mg/dL (7-18)
[2021-06-04 07:02] LABS: CREATININE 3.1 mg/dL (0.55-1.3)
[2021-06-04 07:40] LABS: HEMATOCRIT 23.8 % (35.4-49); HEMOGLOBIN 7.7 GM/dL (11.7-16.9); MCH 29.2 pg (25.7-33.7); MCHC 32.4 g/dl (32.0-35.9); MEAN CELL VOLUME 90.2 fl (80-96); MEAN PLT VOLUME 7.1 fl (7.5-11.1); PLATELET COUNT 335 10^3/uL (134-434); RBC 2.64 M/mm3 (4.00-5.60); RDW 17.1 % (11.9-15.9); WHITE BLOOD COUNT 8.1 K/mm3 (4.0-10.0)
[2021-06-04] MEDS: CALCIUM ACETATE 667 MG CAPSULE (FP) GT SCH ×3 (08:20→17:44)
[2021-06-04] MEDS ORDERED: PT OWN MED DRAWER 7, Y5N ONE (09:54)
[2021-06-04] MEDS: CARVEDILOL 12.5 MG TABLET (FP) GT SCH ×2 (10:20→21:43)
[2021-06-04] MEDS: EZETIMIBE 10 MG TABLET (FP) GT SCH (10:20)
[2021-06-04] MEDS: APIXABAN 2.5 MG TABLET PO SCH ×2 (10:20→21:43)
[2021-06-04] MEDS: amLODIPine BESYLATE 10 MG TABLET (FP) GT SCH (10:20)
[2021-06-04] MEDS: MUPIROCIN CA 2% TOPICAL CREAM 15 GM TUBE TP SCH ×2 (10:21→21:43)
[2021-06-04] MEDS: COLLAGENASE CLOSTRIDIUM HIST. 30 GRAMS TUBE TP SCH ×2 (10:21→21:43)
[2021-06-04] MEDS: ATORVASTATIN CA 80 MG TABLET (FP) GT SCH (21:43)
[2021-06-04 22:01] VITALS: BP 123/60; PULSE 78; TEMP 98.5
== END 2021-06-04 22:25 | DRG 56 ==
LOC: JER 17:07 → JERBED 21:49 → J4S 05-21 14:20
PROVIDERS: ADMIT Internal Medicine; ATTEND Internal Medicine
PROC: 3E0G76Z Introduction of Nutritional Substance into Upper GI, Via Natural or Artificial Opening (ICD-10-PCS; 2021-05-21)
PROC: 5A1D70Z Performance of Urinary Filtration, Intermittent, Less than 6 Hours Per Day (ICD-10-PCS; 2021-05-21)
PROC: 0DH63UZ Insertion of Feeding Device into Stomach, Percutaneous Approach (ICD-10-PCS; principal; 2021-05-24)
PROC: 4A10X4Z Monitoring of Central Nervous Electrical Activity, External Approach (ICD-10-PCS; 2021-05-24)
PROC: 30233N1 Transfusion of Nonautologous Red Blood Cells into Peripheral Vein, Percutaneous Approach (ICD-10-PCS; 2021-05-26)
DX: I69.391 Dysphagia following cerebral infarction (principal); N18.6 End stage renal disease; I63.9 Cerebral infarction, unspecified; I13.2 Hypertensive heart and chronic kidney disease with heart failure and with stage 5 chronic kidney disease, or end stage renal disease; I24.8 Other forms of acute ischemic heart disease; E46 Unspecified protein-calorie malnutrition; I50.32 Chronic diastolic (congestive) heart failure; G81.94 Hemiplegia, unspecified affecting left nondominant side; I82.C12 Acute embolism and thrombosis of left internal jugular vein; Z68.1 Body mass index [BMI] 19.9 or less, adult; E11.22 Type 2 diabetes mellitus with diabetic chronic kidney disease; R13.10 Dysphagia, unspecified; Z99.2 Dependence on renal dialysis; Z99.81 Dependence on supplemental oxygen; E78.5 Hyperlipidemia, unspecified; Z79.4 Long term (current) use of insulin; D63.1 Anemia in chronic kidney disease; L89.150 Pressure ulcer of sacral region, unstageable; L89.222 Pressure ulcer of left hip, stage 2
CPT/HCPCS: 36415; 36430; 36511; 49440; 70450-TC; 71045-TC-FY; 74018-TC-FY; 74230-TC-FY; 80048; 80053; 82272; 82550; 83605; 83735; 84484; 85025; 85027; 85610; 85730; 86850; 86900; 86901; 86922; 87040; 92611-GN; 93005; 93010; 93971; 95816; 97162-GP; 99291; C9803; J0131; P9038; P9047; P9058; Q5106; U0003; U0005

== ENCOUNTER 2021-06-28 13:35 | Emergency (ER) | payer OTHER ==
[2021-06-28 14:08] VITALS: BMI 19.6
[2021-06-28 15:29] LABS: HEMATOCRIT 16.8 % (35.4-49); MCH 31.3 pg (25.7-33.7); MCHC 33.9 g/dl (32.0-35.9); MEAN CELL VOLUME 92.3 fl (80-96); MEAN PLT VOLUME 6.8 fl (7.5-11.1); PLATELET COUNT 422 10^3/uL (134-434); RBC 1.83 M/mm3 (4.00-5.60); RDW 20.8 % (11.9-15.9); WHITE BLOOD COUNT 9.1 K/mm3 (4.0-10.0)
[2021-06-28 15:33] LABS: HEMOGLOBIN 5.7 GM/dL (11.7-16.9)
[2021-06-28 15:40] LABS: INR 1.4 (0.83-1.09); PROTHROMBIN TIME (PATIENT) 17.1 SEC (9.7-13.0)
[2021-06-28 15:42] LABS: ACTIVATED PTT 28.5 SECONDS (25.2-36.5)
[2021-06-28] MEDS ORDERED: ACETAMINOPHEN 650 MG/20.3 ML ORAL SOLUTION (CUPS) PO ONE (18:07)
[2021-06-28] MEDS ORDERED: ACETAMINOPHEN 650 MG/20.3 ML ORAL SOLUTION (CUPS) ONE (18:27)
[2021-06-28 20:43] VITALS: TEMP 98.6
[2021-06-29 04:58] VITALS: BP 152/60; PULSE 66
== END 2021-06-29 05:05 ==
LOC: JER 13:35
DX: N18.6 End stage renal disease (principal); D64.9 Anemia, unspecified
CPT/HCPCS: 36415; 36430; 85027; 85610; 85730; 86850; 86900; 86901; 86922; 93005; 93010; 99284-25; P9058

== ENCOUNTER 2021-07-16 11:18 | Inpatient (IN) | payer OTHER ==
[2021-07-16] MEDS ORDERED: PIPERACILLIN/TAZOB 4.5 GM 4.5 GM in DEXTROSE 5%-WATER 100 ML IVPB ONE (11:39)
[2021-07-16] MEDS ORDERED: VANCOMYCIN 1 GM in D5W (PRE-DOCKED) 1,000 MG/250 ML IVPB ONE (11:39)
[2021-07-16 11:42] LABS: HEMATOCRIT 24.2 % (35.4-49); HEMOGLOBIN 7.7 GM/dL (11.7-16.9); MCH 30.7 pg (25.7-33.7); MEAN CELL VOLUME 95.9 fl (80-96); MEAN PLT VOLUME 6.2 fl (7.5-11.1); PLATELET COUNT 650 10^3/uL (134-434); RBC 2.52 M/mm3 (4.00-5.60); RDW 21.5 % (11.9-15.9); WHITE BLOOD COUNT 15.4 K/mm3 (4.0-10.0)
[2021-07-16] MEDS ORDERED: VANCOMYCIN 1,000 MG in DEXTROSE 5%-WATER - 250 ML IVPB ONE (11:45)
[2021-07-16 11:50] VITALS: BMI 24.7
[2021-07-16 11:50] LABS: INR 1.75 (0.83-1.09); PROTHROMBIN TIME (PATIENT) 21.2 SEC (9.7-13.0)
[2021-07-16] MEDS ORDERED: PIPERACILLIN/TAZOB 4.5 GM 4.5 GM/100 ML BAG IVPB ONE (12:00)
[2021-07-16] MEDS ORDERED: VANCOMYCIN 1 GRAM (PRE-DOCKED) 1,000 MG/250 ML BAG IVPB ONE (12:00)
[2021-07-16 12:03] LABS: CALCIUM 8.3 mg/dL (8.5-10.1)
[2021-07-16 12:04] LABS: ALBUMIN 1.4 g/dl (3.4-5.0); BLOOD UREA NITROGEN 65.6 mg/dL (7-18)
[2021-07-16 12:07] LABS: CREATININE 2.8 mg/dL (0.55-1.3)
[2021-07-16 12:08] LABS: BILIRUBIN,TOTAL 0.3 mg/dL (0.2-1); TOT PROT 6.3 g/dl (6.4-8.2)
[2021-07-16 12:17] LABS: LACTIC ACID 2.2 mmol/L (0.4-2.0)
[2021-07-16 12:59] LABS: ANISOCYTOSIS 1+; MACROCYTOSIS 0; PLATELET ESTIMATE INCREASED
[2021-07-16] MEDS ORDERED: ALBUTEROL SO4 2.5/IPRATROPIUM 0.5 INH SOL 3 ML VIAL.NEB. NEB ONE (13:54)
[2021-07-16] MEDS ORDERED: NOREPINEPHRINE BITARTRATE 16,000 MCG in SODIUM CHLORIDE 484 ML IV SCH (14:45)
[2021-07-16] MEDS: AMINO ACIDS 4.25%/D5W 1,000 ML IV SCH (17:54)
[2021-07-16] MEDS ORDERED: PIPERACILLIN/TAZOB 2.25 GM 2.25 GM/50 ML BAG IVPB ONE (19:24)
[2021-07-16] MEDS: PIPERACILLIN/TAZOB 2.25 GM 2.25 GM in DEXTROSE 5%-WATER - 50 ML IVPB SCH (19:25)
[2021-07-16 22:14] LABS: LACTIC ACID 2.1 mmol/L (0.4-2.0)
[2021-07-17] MEDS ORDERED: PIPERACILLIN/TAZOBACTAM 2.25 GM VIAL IVPB ONE ×3 (02:29→16:40)
[2021-07-17] MEDS ORDERED: DEXTROSE 5%-WATER - 50 ML IVPB ONE ×3 (02:30→16:41)
[2021-07-17] MEDS: PIPERACILLIN/TAZOB 2.25 GM 2.25 GM in DEXTROSE 5%-WATER - 50 ML IVPB SCH ×5 (02:41→17:20)
[2021-07-17] MEDS: INSULIN SLIDING SCALE (NOVOLOG) 1 VIAL SQ SCH ×2 (11:07→17:24)
[2021-07-17] MEDS: PANTOPRAZOLE SODIUM 40 MG VIAL IVPUSH SCH (14:17)
[2021-07-17] MEDS ORDERED: SODIUM CHLORIDE 250 ML IV PRN (17:04)
[2021-07-17] MEDS: AMINO ACIDS 4.25%/D5W 1,000 ML IV SCH (17:20)
[2021-07-17] MEDS ORDERED: ACETAMINOPHEN 650 MG/20.3 ML ORAL SOLUTION (CUPS) GT ONE (22:49)
[2021-07-17] MEDS: CARVEDILOL 12.5 MG TABLET (FP) GT SCH (22:54)
[2021-07-18] MEDS ORDERED: PIPERACILLIN/TAZOBACTAM 2.25 GM VIAL IVPB ONE ×3 (01:36→16:00)
[2021-07-18] MEDS ORDERED: DEXTROSE 5%-WATER - 50 ML IVPB ONE ×3 (01:37→16:00)
[2021-07-18] MEDS: PIPERACILLIN/TAZOB 2.25 GM 2.25 GM in DEXTROSE 5%-WATER - 50 ML IVPB SCH ×4 (01:41→17:32)
[2021-07-18] MEDS: INSULIN SLIDING SCALE (NOVOLOG) 1 VIAL SQ SCH ×3 (06:08→16:17)
[2021-07-18] MEDS ORDERED: EPOETIN ALFA-EPBX 10,000 UNIT/ML VIAL IVPUSH ONE (08:15)
[2021-07-18] MEDS ORDERED: VANCOMYCIN 1 GRAM (PRE-DOCKED) 1,000 MG/250 ML BAG IVPB ONE (08:59)
[2021-07-18 09:13] LABS: BASO % 0.3 % (0-2.0); EOS % 1.7 % (0-4.5); HEMATOCRIT 20.8 % (35.4-49); LYMPH % 5.4 % (8-40); MCH 30.3 pg (25.7-33.7); MCHC 31.9 g/dl (32.0-35.9); MEAN CELL VOLUME 94.8 fl (80-96); MEAN PLT VOLUME 6.3 fl (7.5-11.1); MONO % 4.8 % (3.8-10.2); NEUT % 87.8 % (42.8-82.8); PLATELET COUNT 579 10^3/uL (134-434); RBC 2.19 M/mm3 (4.00-5.60); RDW 20.8 % (11.9-15.9); WHITE BLOOD COUNT 14.4 K/mm3 (4.0-10.0)
[2021-07-18 09:22] LABS: HEMOGLOBIN 6.6 GM/dL (11.7-16.9)
[2021-07-18 09:50] LABS: ALBUMIN 1.3 g/dl (3.4-5.0); CALCIUM 8.3 mg/dL (8.5-10.1)
[2021-07-18 09:54] LABS: CREATININE 3.6 mg/dL (0.55-1.3)
[2021-07-18 09:55] LABS: BILIRUBIN,TOTAL 0.4 mg/dL (0.2-1)
[2021-07-18 09:56] LABS: TOT PROT 5.6 g/dl (6.4-8.2)
[2021-07-18 10:19] LABS: BLOOD UREA NITROGEN 101.8 mg/dL (7-18)
[2021-07-18] MEDS ORDERED: SODIUM CHLORIDE 250 ML IV PRN (10:48)
[2021-07-18] MEDS: PANTOPRAZOLE SODIUM 40 MG VIAL IVPUSH SCH (11:34)
[2021-07-18] MEDS: CARVEDILOL 12.5 MG TABLET (FP) GT SCH (11:34)
[2021-07-18] MEDS ORDERED: FAMOTIDINE 40 MG/5 ML ORAL SUSPENSION PEG SCH (13:00)
[2021-07-18] MEDS ORDERED: ACETAMINOPHEN 650 MG/20.3 ML ORAL SOLUTION (CUPS) GT PRN (13:51)
[2021-07-18] MEDS: AMINO ACIDS/PROTEIN HYDROLYS 30 ML LIQUID.PKT GT SCH ×2 (16:18→17:32)
[2021-07-18 20:10] VITALS: TEMP 99
[2021-07-18 20:16] VITALS: BP 51/25; PULSE 28
[2021-07-19] MEDS ORDERED: FAMOTIDINE 40 MG/5 ML ORAL SUSPENSION PEG SCH (10:00)
[2021-07-19] MEDS ORDERED: EPOETIN ALFA-EPBX 10,000 UNIT/ML VIAL IVPUSH ONE (10:48)
== END 2021-07-18 21:43 | disposition expired | DRG 871 ==
LOC: JER 11:18 → JERBED 13:32 → J4S 07-17 00:41
PROVIDERS: ADMIT Internal Medicine; ATTEND Internal Medicine
PROC: 06HM33Z Insertion of Infusion Device into Right Femoral Vein, Percutaneous Approach (ICD-10-PCS; 2021-07-17)
PROC: 5A1D70Z Performance of Urinary Filtration, Intermittent, Less than 6 Hours Per Day (ICD-10-PCS; principal; 2021-07-18)
PROC: 30233N1 Transfusion of Nonautologous Red Blood Cells into Peripheral Vein, Percutaneous Approach (ICD-10-PCS; 2021-07-18)
DX: A41.9 Sepsis, unspecified organism (principal); J96.01 Acute respiratory failure with hypoxia; N18.6 End stage renal disease; J69.0 Pneumonitis due to inhalation of food and vomit; E87.2 Acidosis; E87.1 Hypo-osmolality and hyponatremia; R64 Cachexia; I12.0 Hypertensive chronic kidney disease with stage 5 chronic kidney disease or end stage renal disease; E78.5 Hyperlipidemia, unspecified; D64.9 Anemia, unspecified; R00.1 Bradycardia, unspecified; I95.9 Hypotension, unspecified; R74.01 Elevation of levels of liver transaminase levels; Z68.24 Body mass index [BMI] 24.0-24.9, adult; Z99.2 Dependence on renal dialysis; E87.70 Fluid overload, unspecified; E11.22 Type 2 diabetes mellitus with diabetic chronic kidney disease
CPT/HCPCS: 36415; 36430; 71045-TC-FY; 71250-TC; 73630-TC-LT; 80053; 82272; 82962; 83605; 84484; 85025; 85610; 85730; 86803; 86850; 86900; 86901; 86922; 87040; 87186; 87340; 93005; 93010; 94660; 99291; 99292; C9803; G0480; P9058; Q5106; U0003; U0005